=== PATIENT | female | born 1935 | race Asian ===

== ENCOUNTER → 2016-12-01 | Outpatient (CLI) | payer OTHER, MEDICAID ==
[~2016-12-01] MED LIST: AMLO-511 PO; ASPI81 PO; ATOR20TA86 PO; CARV12 PO; D-ME118S13 PO; DOCU250C21 PO; FERR-89 PO; HYDR50 PO; LEVO88TA4 PO; SITA25 PO; VALS160T2 PO
== END | disposition home or self-care (01) ==
LOC: RADPV 15:19
PROVIDERS: ATTEND Internal Medicine
DX: I50.9 Heart failure, unspecified (principal); J98.11 Atelectasis; J90 Pleural effusion, not elsewhere classified; I51.7 Cardiomegaly; I70.0 Atherosclerosis of aorta
CPT/HCPCS: 71020

== ENCOUNTER 2017-01-23 15:20 | Inpatient (IN) | payer OTHER, MEDICAID ==
[~2017-01-23] VITALS: Ht 152.4 cm; Wt 66.9 kg
[2017-01-23 15:37] LABS: GLUCOSE,POINT OF CARE 112 MG/DL (70-110)
[2017-01-23] MEDS ORDERED: VALS160T2 PO (15:38)
[2017-01-23] MEDS ORDERED: DOCU250C21 PO (15:38)
[2017-01-23] MEDS ORDERED: D-ME118S13 PO (15:38)
[2017-01-23] MEDS ORDERED: HYDR50 PO (15:38)
[2017-01-23] MEDS ORDERED: FERS325 PO (15:38)
[2017-01-23] MEDS ORDERED: ASPI81 PO (15:38)
[2017-01-23] MEDS ORDERED: ATOR20TA86 PO (15:38)
[2017-01-23] MEDS ORDERED: AMLO-511 PO (15:38)
[2017-01-23] MEDS ORDERED: CARV12 PO (15:38)
[2017-01-23] MEDS ORDERED: LEVO88TA4 PO (15:38)
[2017-01-23] MEDS ORDERED: SITA25 PO (15:38)
[2017-01-23 16:04] LABS: BASOPHILS % (AUTO) 0.1 % (0.0-2.0); EOSINOPHILS % (AUTO) 0.06 % (1.0-6.0); HEMATOCRIT 31.1 % (36-46); HEMOGLOBIN 10.2 g/dL (12.0-16.0); LYMPHOCYTES % (AUTO) 19.4 % (22.0-44.0); MEAN CORPUSCULAR HEMOGLOBIN 29.8 pg (26.0-34.0); MEAN CORPUSCULAR HGB CONC 32.8 G/dL (31.0-37.0); MEAN CORPUSCULAR VOLUME 91 fL (80-100); MONOCYTES # (AUTO) 0.3 K/uL (0.1-1.0); MONOCYTES % (AUTO) 5.7 % (2.0-9.0); NEUTROPHILS % (AUTO) 74.8 % (40.0-70.0); PLATELET COUNT (AUTO) 188 K/uL (150-450); RED BLOOD CELL COUNT(AUTO) 3.42 MIL/uL (4.00-5.20); RED CELL DISTRIBUTION WIDTH 14.7 % (11.5-14.5); WHITE BLOOD COUNT (AUTO) 5.4 K/uL (4.5-11.0)
[2017-01-23 16:08] LABS: CALCIUM, TOTAL 8.1 mg/dL (8.8-10.5); CREATININE 3.7 mg/dL (0.60-1.30); POTASSIUM 5.8 mmol/L (3.5-5.1)
[2017-01-23 16:22] LABS: ALBUMIN 3.3 g/dL (3.4-5.0); BILIRUBIN,TOTAL 0.4 mg/dL (0.1-1.0); THYROID STIMULATING HORMONE 0.59 uIU/mL (0.36-3.74); TOTAL PROTEIN, SERUM 7.1 g/dL (6.4-8.2)
[2017-01-23 16:28] LABS: RBC MORPHOLOGY COMMENT ABNORMAL RBC MORPH
[2017-01-23] MEDS ORDERED: SODIUM BICARBONATE [ADULT] 8.4% 50 MEQ/50 ML SYRINGE IVP ONE (16:30)
[2017-01-23] MEDS ORDERED: CefTRIAXone 1 GM/DEXTROSE 50 ML IV ONE (16:30)
[2017-01-23] MEDS ORDERED: DEXTROSE 50%-WATER 25 GM/50 ML SYRINGE IVP ONE (16:30)
[2017-01-23] MEDS ORDERED: NITROGLYCERIN 2% (1 GM=INCH) PACKET TP ONE (16:30)
[2017-01-23] MEDS ORDERED: NITROGLYCERIN 0.4 MG SUBLINGUAL TABLET #25 SL ONE (16:30)
[2017-01-23] MEDS ORDERED: CALCIUM GLUCONATE 100 MG/ML 10 ML IVP ONE (16:30)
[2017-01-23] MEDS ORDERED: ALBUTEROL SULFATE 2.5 MG/0.5 ML NEB SOLUTION NEB ONE (16:30)
[2017-01-23] MEDS ORDERED: ASPIRIN 81 MG CHEWABLE TABLET PO ONE (16:30)
[2017-01-23] MEDS ORDERED: AZITHROMYCIN 500 MG/NS 250 ML IV ONE (16:30)
[2017-01-23] MEDS ORDERED: SODIUM POLYSTYRENE SULFONATE 15 GM/60 ML SUSPENSION BOTTLE PO ONE (16:30)
[2017-01-23] MEDS ORDERED: INSULIN REGULAR, HUMAN 100 UNITS/ML IVP ONE (16:30)
[2017-01-23] MEDS ORDERED: 0.9% SODIUM CHLORIDE 5 ML NEB SOLUTION NEB ONE (16:44)
[2017-01-23 16:48] LABS: INR 1.1 (0.9-1.1); PROTHROMBIN TIME 11.4 SEC (9.4-11.6)
[2017-01-23] MEDS ORDERED: ACETAMINOPHEN 325 MG TABLET PO PRN (18:15)
[2017-01-23] MEDS ORDERED: 0.9% SODIUM CHLORIDE 10 ML SYRINGE IVP PRN (18:15)
[2017-01-23] MEDS ORDERED: ATORVASTATIN CALCIUM 40 MG TABLET PO ONE (18:15)
[2017-01-23 18:27] LABS: GLUCOSE,POINT OF CARE 180 MG/DL (70-110)
[2017-01-23] MEDS: ALBUTEROL SULFATE 2.5 MG/0.5 ML NEB SOLUTION NEB SCH (21:09)
[2017-01-23] MEDS: IPRATROPIUM BROMIDE 0.5 MG/2.5 ML NEB SOLUTION NEB SCH (21:09)
[2017-01-23 21:30] VITALS: BP 143/69
[2017-01-23] MEDS ORDERED: PROMETHAZINE HCL/D-METHORPHAN HB 5 ML ORAL.SYG PO PRN (23:30)
[2017-01-23] MEDS: HydrALAZINE HCL 50 MG TABLET PO SCH (23:30)
[2017-01-24] VITALS: BP 140/70
[2017-01-24] MEDS: HEPARIN SODIUM,PORCINE 5,000 UNITS/ML VIAL SQ SCH ×4 (00:18→23:30)
[2017-01-24] MEDS: ALBUTEROL SULFATE 2.5 MG/0.5 ML NEB SOLUTION NEB SCH (02:14)
[2017-01-24] MEDS: IPRATROPIUM BROMIDE 0.5 MG/2.5 ML NEB SOLUTION NEB SCH (02:14)
[2017-01-24 04:02] VITALS: BP 133/70
[2017-01-24] MEDS: LEVOTHYROXINE SODIUM 88 MCG TABLET PO SCH (06:30)
[2017-01-24 06:43] LABS: ALBUMIN 2.9 g/dL (3.4-5.0); BILIRUBIN,TOTAL 0.2 mg/dL (0.1-1.0); CALCIUM, TOTAL 8.1 mg/dL (8.8-10.5); CREATININE 4.15 mg/dL (0.60-1.30); MAGNESIUM 3.5 mg/dL (1.80-2.40); POTASSIUM 5.9 mmol/L (3.5-5.1); TOTAL PROTEIN, SERUM 6.4 g/dL (6.4-8.2)
[2017-01-24 06:45] LABS: EOSINOPHILS % (AUTO) 0.11 % (1.0-6.0); HEMATOCRIT 30.7 % (36-46); HEMOGLOBIN 9.7 g/dL (12.0-16.0); LYMPHOCYTES # (AUTO) 0.4 K/uL (1.0-4.8); LYMPHOCYTES % (AUTO) 9.6 % (22.0-44.0); MEAN CORPUSCULAR HEMOGLOBIN 29.8 pg (26.0-34.0); MEAN CORPUSCULAR HGB CONC 31.5 G/dL (31.0-37.0); MEAN CORPUSCULAR VOLUME 95 fL (80-100); MONOCYTES # (AUTO) 0.2 K/uL (0.1-1.0); MONOCYTES % (AUTO) 5.5 % (2.0-9.0); NEUTROPHILS # (AUTO) 3.6 K/uL (1.8-7.7); NEUTROPHILS % (AUTO) 84.9 % (40.0-70.0); PLATELET COUNT (AUTO) 177 K/uL (150-450); RED BLOOD CELL COUNT(AUTO) 3.24 MIL/uL (4.00-5.20); RED CELL DISTRIBUTION WIDTH 15.4 % (11.5-14.5)
[2017-01-24] MEDS: FERROUS SULFATE 325 MG EC TABLET PO SCH ×2 (08:00→17:30)
[2017-01-24 08:09] VITALS: BP 143/60
[2017-01-24] MEDS: DOCUSATE SODIUM 250 MG CAPSULE PO SCH ×2 (09:00→20:48)
[2017-01-24] MEDS: CARVEDILOL 12.5 MG TABLET PO SCH ×2 (09:00→20:48)
[2017-01-24] MEDS ORDERED: VALSARTAN 160 MG TABLET PO SCH (09:00)
[2017-01-24] MEDS ORDERED: AmLODIPine BESYLATE 5 MG TABLET PO SCH (09:00)
[2017-01-24] MEDS ORDERED: SODIUM POLYSTYRENE SULFONATE 15 GM/60 ML SUSPENSION BOTTLE PO ONE (09:45)
[2017-01-24] MEDS ORDERED: SODIUM CHLORIDE 0.45% 1,000 ML IV SCH (09:45)
[2017-01-24] MEDS: AZITHROMYCIN 250 MG TABLET PO SCH (10:56)
[2017-01-24] MEDS: ASPIRIN 81 MG CHEWABLE TABLET PO SCH (10:57)
[2017-01-24] MEDS: ATORVASTATIN CALCIUM 20 MG TABLET PO SCH (10:57)
[2017-01-24] MEDS: SitaGLIPtin PHOSPHATE 25 MG TABLET PO SCH (10:57)
[2017-01-24] MEDS: HydrALAZINE HCL 50 MG TABLET PO SCH ×2 (10:57→20:48)
[2017-01-24 12:29] VITALS: BP 132/80
[2017-01-24 14:32] LABS: ABG A-A DIFF O2 12.9 mmHg (10-20.0); ABG BASE EXCESS 0.4 mmol/L (-2.0-3.0); ABG HCO3 23.2 mmol/L (22.0-26.0); ABG OXYHEMOGLOBIN 91.6 % (94.0-100.0); TEMPERATURE, FAHRENHEIT, BG 97.5 FAHREN (96.0-98.6)
[2017-01-24 14:35] LABS: ABG PCO2 102 mmHg (35-45); ABG PH 7.087 (7.35-7.450)
[2017-01-24 14:36] LABS: ALLEN TEST, BLOOD GAS Positive
[2017-01-24 14:54] LABS: APPEARANCE,URINE CLOUDY (CLEAR); GLUCOSE, URINE (UA) NEGATIVE (NEGATIVE); KETONES,URINE NEGATIVE (NEGATIVE); LEUKOCYTE ESTERASE ,URINE NEGATIVE (NEGATIVE); OCCULT BLOOD,URINE LARGE (NEGATIVE); PROTEIN,URINE SEE CONFIRM (NEGATIVE)
[2017-01-24 14:55] LABS: ADD UA MICROSCOPIC YES
[2017-01-24 14:57] LABS: SULFOSALICYLIC ACID,URINE 3+ (Negative)
[2017-01-24 14:59] LABS: RBC,URINE 26-50 /HPF (0-2)
[2017-01-24 15:00] LABS: AMORPHOUS SEDIMENT,UR Moderate /LPF (None Seen); SQUAMOUS EPITHELIAL CELL,UR Few /LPF (None Seen)
[2017-01-24 16:00] VITALS: BP 120/22
[2017-01-24] MEDS ORDERED: NITROGLYCERIN 50 MG/D5% WATER 250 ML IV PRN (17:05)
[2017-01-24] MEDS ORDERED: ETOMIDATE 2 MG/ML 10 ML VIAL IVP ONE (17:37)
[2017-01-24] MEDS ORDERED: VECURONIUM BROMIDE 10 MG/VIAL IVP ONE (17:37)
[2017-01-24] MEDS: CefTRIAXone 1 GM/DEXTROSE 50 ML IV SCH (17:53)
[2017-01-24] MEDS ORDERED: LevETIRAcetam 500 MG in DEXTROSE 5%-WATER 100 ML IV ONE (19:00)
[2017-01-24 19:33] LABS: ABG A-A DIFF O2 157.3 mmHg (10-20.0); ABG BASE EXCESS 0.3 mmol/L (-2.0-3.0); ABG HCO3 25.3 mmol/L (22.0-26.0); ABG OXYHEMOGLOBIN 97.9 % (94.0-100.0); ABG PCO2 28 mmHg (35-45); ABG PH 7.535 (7.35-7.450); TEMPERATURE, FAHRENHEIT, BG 98.6 FAHREN (96.0-98.6)
[2017-01-24 19:34] LABS: ALLEN TEST, BLOOD GAS POSITIVE
[2017-01-24] MEDS ORDERED: LORazepam 2 MG/ML VIAL IVP ONE (19:45)
[2017-01-24] MEDS ORDERED: NICARDipine 20 MG/DEXT,ISO-OSM 200 ML IV PRN (19:45)
[2017-01-24] MEDS ORDERED: PROPOFOL 1000 MG/ISO-OSM 100 ML IV PRN (19:46)
[2017-01-24] MEDS: SODIUM CHLORIDE 0.9% 1,000 ML IV SCH (20:48)
[2017-01-24 21:47] LABS: CREATINE KINASE, TOTAL 63 U/L (26-192)
[2017-01-24] MEDS ORDERED: RAPID SEQUENCE KIT 1 EA KIT ONE (23:59)
[2017-01-25] VITALS: BP 146/74
[2017-01-25 04:00] VITALS: BP 130/66
[2017-01-25 05:58] LABS: BASOPHILS # (AUTO) 0.01 K/uL (0.00-0.20); BASOPHILS % (AUTO) 0.1 % (0.0-2.0); EOSINOPHILS # (AUTO) 0.01 K/uL (0.00-0.70); EOSINOPHILS % (AUTO) 0.19 % (1.0-6.0); HEMATOCRIT 26.9 % (36-46); HEMOGLOBIN 8.9 g/dL (12.0-16.0); LYMPHOCYTES # (AUTO) 0.8 K/uL (1.0-4.8); LYMPHOCYTES % (AUTO) 13.7 % (22.0-44.0); MEAN CORPUSCULAR HEMOGLOBIN 29.9 pg (26.0-34.0); MEAN CORPUSCULAR HGB CONC 32.9 G/dL (31.0-37.0); MEAN CORPUSCULAR VOLUME 91 fL (80-100); MONOCYTES # (AUTO) 0.4 K/uL (0.1-1.0); MONOCYTES % (AUTO) 6.2 % (2.0-9.0); NEUTROPHILS # (AUTO) 4.8 K/uL (1.8-7.7); NEUTROPHILS % (AUTO) 79.8 % (40.0-70.0); PLATELET COUNT (AUTO) 148 K/uL (150-450); RED BLOOD CELL COUNT(AUTO) 2.96 MIL/uL (4.00-5.20); RED CELL DISTRIBUTION WIDTH 14.8 % (11.5-14.5)
[2017-01-25 06:40] LABS: ALANINE AMINOTRANSFERASE 53 U/L (12-78); ALBUMIN 2.4 g/dL (3.4-5.0); ANION GAP 13 mmol/L (8-16); ASPARTATE AMINOTRANSFERASE 54 U/L (15-37); BILIRUBIN,TOTAL 0.4 mg/dL (0.1-1.0); CALCIUM, TOTAL 7.3 mg/dL (8.8-10.5); CARBON DIOXIDE 28 mmol/L (22-29); CHLORIDE 105 mmol/L (98-107); CREATINE KINASE, TOTAL 63 U/L (26-192); CREATININE 4.04 mg/dL (0.60-1.30); GLOMERULAR FILTR. RATE CALC 11 mL/min (>60); PHOSPHORUS 4.7 mg/dL (2.5-4.9); SODIUM SERUM 146 mmol/L (136-145); THYROID STIMULATING HORMONE 0.52 uIU/mL (0.36-3.74); TOTAL PROTEIN, SERUM 5.4 g/dL (6.4-8.2); UREA NITROGEN, BLOOD 85 mg/dL (7-18)
[2017-01-25 06:49] LABS: WHITE BLOOD COUNT (AUTO) 6.8 K/uL (4.5-11.0)
[2017-01-25] MEDS: LEVOTHYROXINE SODIUM 88 MCG TABLET PO SCH (06:51)
[2017-01-25 06:56] LABS: POTASSIUM 2.8 mmol/L (3.5-5.1)
[2017-01-25 06:59] LABS: GLUCOSE,POINT OF CARE 142 MG/DL (70-110)
[2017-01-25 07:46] LABS: B-TYPE NATRIURETIC PEPTIDE 495 pg/mL (0-100)
[2017-01-25 08:00] VITALS: BP 134/63
[2017-01-25] MEDS: ATORVASTATIN CALCIUM 20 MG TABLET PO SCH (08:12)
[2017-01-25] MEDS: AZITHROMYCIN 250 MG TABLET PO SCH (08:12)
[2017-01-25] MEDS: SitaGLIPtin PHOSPHATE 25 MG TABLET PO SCH (08:12)
[2017-01-25] MEDS: AmLODIPine BESYLATE 10 MG TABLET PO SCH (08:12)
[2017-01-25] MEDS: DOCUSATE SODIUM 250 MG CAPSULE PO SCH ×2 (08:13→20:17)
[2017-01-25] MEDS: FERROUS SULFATE 325 MG EC TABLET PO SCH ×2 (08:13→16:41)
[2017-01-25] MEDS: HEPARIN SODIUM,PORCINE 5,000 UNITS/ML VIAL SQ SCH ×3 (08:13→23:33)
[2017-01-25] MEDS: ASPIRIN 81 MG CHEWABLE TABLET PO SCH (08:13)
[2017-01-25] MEDS: HydrALAZINE HCL 50 MG TABLET PO SCH ×2 (08:13→20:17)
[2017-01-25] MEDS: CARVEDILOL 12.5 MG TABLET PO SCH ×2 (08:13→20:17)
[2017-01-25 08:46] LABS: RBC MORPHOLOGY COMMENT ABNORMAL RBC MORPH
[2017-01-25 09:44] LABS: CREATININE 3.84 mg/dL (0.60-1.30); MAGNESIUM 2.7 mg/dL (1.80-2.40)
[2017-01-25 09:49] LABS: POTASSIUM 2.5 mmol/L (3.5-5.1)
[2017-01-25] MEDS: SODIUM CHLORIDE 0.9% 1,000 ML IV SCH (10:02)
[2017-01-25] MEDS: POTASSIUM CHL 10 MEQ/WATER 50 ML IV SCH ×2 (10:02→11:00)
[2017-01-25 10:08] LABS: ABG A-A DIFF O2 109.1 mmHg (10-20.0); ABG BASE EXCESS 2.1 mmol/L (-2.0-3.0); ABG HCO3 26.7 mmol/L (22.0-26.0); ABG OXYHEMOGLOBIN 98.4 % (94.0-100.0); ABG PCO2 30 mmHg (35-45); ABG PH 7.537 (7.35-7.450)
[2017-01-25 12:00] VITALS: BP 104/50
[2017-01-25 12:02] LABS: ALLEN TEST, BLOOD GAS Positive
[2017-01-25 13:41] LABS: CREATINE KINASE, TOTAL 69 U/L (26-192)
[2017-01-25] MEDS ORDERED: DEXTROSE 50%-WATER 25 GM/50 ML SYRINGE IVP PRN (14:30)
[2017-01-25 16:00] VITALS: BP 121/48
[2017-01-25] MEDS: CefTRIAXone 1 GM/DEXTROSE 50 ML IV SCH (16:41)
[2017-01-25 16:53] LABS: ABG A-A DIFF O2 125.1 mmHg (10-20.0); ABG BASE EXCESS -0.2 mmol/L (-2.0-3.0); ABG HCO3 24.4 mmol/L (22.0-26.0); ABG OXYHEMOGLOBIN 97.6 % (94.0-100.0); ABG PCO2 39 mmHg (35-45); ABG PH 7.411 (7.35-7.450); TEMPERATURE, FAHRENHEIT, BG 98.6 FAHREN (96.0-98.6)
[2017-01-25 17:03] LABS: ALLEN TEST, BLOOD GAS Positive
[2017-01-25 20:00] VITALS: BP 150/68
[2017-01-25] MEDS: INSULIN REGULAR, HUMAN 100 UNITS/ML SQ PRN (23:41)
[2017-01-26] VITALS: BP 108/54
[2017-01-26] MEDS: SODIUM CHLORIDE 0.9% 1,000 ML IV SCH ×2 (00:37→15:24)
[2017-01-26 04:00] VITALS: BP 118/56
[2017-01-26 04:42] LABS: GLUCOSE,POINT OF CARE 118 MG/DL (70-110)
[2017-01-26 04:43] LABS: GLUCOSE,POINT OF CARE 124 MG/DL (70-110)
[2017-01-26 04:43] LABS: GLUCOSE,POINT OF CARE 140 MG/DL (70-110)
[2017-01-26] MEDS: INSULIN REGULAR, HUMAN 100 UNITS/ML SQ PRN ×2 (05:23→17:57)
[2017-01-26 05:32] LABS: BASOPHILS % (AUTO) 0.1 % (0.0-2.0); EOSINOPHILS % (AUTO) 1.3 % (1.0-6.0); HEMATOCRIT 25.8 % (36-46); HEMOGLOBIN 8.1 g/dL (12.0-16.0); LYMPHOCYTES # (AUTO) 0.5 K/uL (1.0-4.8); MEAN CORPUSCULAR HEMOGLOBIN 28.8 pg (26.0-34.0); MEAN CORPUSCULAR HGB CONC 31.6 G/dL (31.0-37.0); MEAN CORPUSCULAR VOLUME 91 fL (80-100); MONOCYTES # (AUTO) 0.4 K/uL (0.1-1.0); MONOCYTES % (AUTO) 7.3 % (2.0-9.0); NEUTROPHILS # (AUTO) 4.4 K/uL (1.8-7.7); NEUTROPHILS % (AUTO) 81.3 % (40.0-70.0); PLATELET COUNT (AUTO) 136 K/uL (150-450); RED BLOOD CELL COUNT(AUTO) 2.83 MIL/uL (4.00-5.20); RED CELL DISTRIBUTION WIDTH 14.5 % (11.5-14.5)
[2017-01-26 05:49] LABS: CREATININE 3.45 mg/dL (0.60-1.30); MAGNESIUM 2.7 mg/dL (1.80-2.40); PHOSPHORUS 2.6 mg/dL (2.5-4.9)
[2017-01-26 05:53] LABS: WHITE BLOOD COUNT (AUTO) 5.9 K/uL (4.5-11.0)
[2017-01-26] MEDS: LEVOTHYROXINE SODIUM 88 MCG TABLET PO SCH (06:11)
[2017-01-26 06:14] LABS: POTASSIUM 2.5 mmol/L (3.5-5.1)
[2017-01-26] MEDS ORDERED: POTASSIUM CHLORIDE 10% 40 MEQ/30 ML LIQUID UDCUP NG ONE (07:15)
[2017-01-26 07:21] LABS: RBC MORPHOLOGY COMMENT ABNORMAL RBC MORPH
[2017-01-26] MEDS: HydrALAZINE HCL 50 MG TABLET PO SCH ×2 (07:49→20:44)
[2017-01-26] MEDS: HEPARIN SODIUM,PORCINE 5,000 UNITS/ML VIAL SQ SCH ×2 (07:49→15:28)
[2017-01-26] MEDS: POTASSIUM CHL 10 MEQ/WATER 50 ML IV SCH ×2 (07:49→09:31)
[2017-01-26] MEDS: CARVEDILOL 12.5 MG TABLET PO SCH ×2 (07:50→21:00)
[2017-01-26] MEDS: DOCUSATE SODIUM 250 MG CAPSULE PO SCH ×2 (07:50→20:44)
[2017-01-26] MEDS: AmLODIPine BESYLATE 10 MG TABLET PO SCH (07:50)
[2017-01-26] MEDS: ATORVASTATIN CALCIUM 20 MG TABLET PO SCH (07:50)
[2017-01-26] MEDS: ASPIRIN 81 MG CHEWABLE TABLET PO SCH (07:50)
[2017-01-26 08:00] VITALS: BP 130/67
[2017-01-26] MEDS: SitaGLIPtin PHOSPHATE 25 MG TABLET PO SCH (08:05)
[2017-01-26] MEDS: FERROUS SULFATE 325 MG EC TABLET PO SCH ×2 (08:05→15:28)
[2017-01-26] MEDS: AZITHROMYCIN 250 MG TABLET PO SCH (08:05)
[2017-01-26 09:58] LABS: ABG A-A DIFF O2 102.7 mmHg (10-20.0); ABG BASE EXCESS 0.8 mmol/L (-2.0-3.0); ABG HCO3 25.8 mmol/L (22.0-26.0); ABG OXYHEMOGLOBIN 98.6 % (94.0-100.0); ABG PCO2 26 mmHg (35-45); ABG PH 7.563 (7.35-7.450)
[2017-01-26 10:33] LABS: ALLEN TEST, BLOOD GAS Positive
[2017-01-26 12:00] VITALS: BP 107/52
[2017-01-26 13:36] LABS: GLUCOSE,POINT OF CARE 120 MG/DL (70-110)
[2017-01-26] MEDS ORDERED: LevETIRAcetam 1,000 MG in DEXTROSE 5%-WATER 100 ML IV ONE (13:45)
[2017-01-26 14:09] LABS: CALCIUM, TOTAL 6.9 mg/dL (8.8-10.5); CREATININE 3.16 mg/dL (0.60-1.30); MAGNESIUM 2.5 mg/dL (1.80-2.40); POTASSIUM 3.7 mmol/L (3.5-5.1)
[2017-01-26] MEDS: CefTRIAXone 1 GM/DEXTROSE 50 ML IV SCH (15:29)
[2017-01-26 16:00] VITALS: BP 121/65
[2017-01-26 20:00] VITALS: BP 115/55
[2017-01-27] VITALS: BP 120/59
[2017-01-27 01:16] LABS: GLUCOSE,POINT OF CARE 146 MG/DL (70-110)
[2017-01-27 01:16] LABS: GLUCOSE,POINT OF CARE 98 MG/DL (70-110)
[2017-01-27] MEDS: HEPARIN SODIUM,PORCINE 5,000 UNITS/ML VIAL SQ SCH ×4 (01:30→23:46)
[2017-01-27] MEDS: LevETIRAcetam 1,000 MG in DEXTROSE 5%-WATER 100 ML IV SCH ×2 (01:30→14:17)
[2017-01-27 04:00] VITALS: BP 135/71
[2017-01-27 05:12] LABS: GLUCOSE,POINT OF CARE 105 MG/DL (70-110)
[2017-01-27] MEDS: SODIUM CHLORIDE 0.9% 1,000 ML IV SCH ×2 (06:31→21:51)
[2017-01-27] MEDS: LEVOTHYROXINE SODIUM 88 MCG TABLET PO SCH (06:31)
[2017-01-27 06:40] LABS: ANION GAP 7 mmol/L (8-16); CALCIUM, TOTAL 6.8 mg/dL (8.8-10.5); CARBON DIOXIDE 27 mmol/L (22-29); CHLORIDE 110 mmol/L (98-107); CREATINE KINASE MB 0.6 ng/mL (0-5); CREATINE KINASE, TOTAL 78 U/L (26-192); CREATININE 2.59 mg/dL (0.60-1.30); GLOMERULAR FILTR. RATE CALC 18 mL/min (>60); PHOSPHORUS 1.6 mg/dL (2.5-4.9); POTASSIUM 3.5 mmol/L (3.5-5.1); SODIUM SERUM 144 mmol/L (136-145); UREA NITROGEN, BLOOD 61 mg/dL (7-18)
[2017-01-27 07:20] LABS: EOSINOPHILS % (AUTO) 2.8 % (1.0-6.0); HEMATOCRIT 26.8 % (36-46); HEMOGLOBIN 8.6 g/dL (12.0-16.0); LYMPHOCYTES # (AUTO) 0.5 K/uL (1.0-4.8); LYMPHOCYTES % (AUTO) 7.8 % (22.0-44.0); MEAN CORPUSCULAR HEMOGLOBIN 29.4 pg (26.0-34.0); MEAN CORPUSCULAR HGB CONC 32.1 G/dL (31.0-37.0); MEAN CORPUSCULAR VOLUME 92 fL (80-100); MONOCYTES # (AUTO) 0.2 K/uL (0.1-1.0); MONOCYTES % (AUTO) 3.3 % (2.0-9.0); NEUTROPHILS # (AUTO) 5.9 K/uL (1.8-7.7); PLATELET COUNT (AUTO) 132 K/uL (150-450); RED BLOOD CELL COUNT(AUTO) 2.92 MIL/uL (4.00-5.20); RED CELL DISTRIBUTION WIDTH 14.7 % (11.5-14.5); WHITE BLOOD COUNT (AUTO) 6.8 K/uL (4.5-11.0)
[2017-01-27 07:24] LABS: B-TYPE NATRIURETIC PEPTIDE 407 pg/mL (0-100)
[2017-01-27 07:25] LABS: NEUTROPHILS % (AUTO) 86.1 % (40.0-70.0)
[2017-01-27 08:00] VITALS: BP 133/66
[2017-01-27 08:10] LABS: ABG A-A DIFF O2 103.8 mmHg (10-20.0); ABG BASE EXCESS 1.4 mmol/L (-2.0-3.0); ABG HCO3 26.6 mmol/L (22.0-26.0); ABG OXYHEMOGLOBIN 98.6 % (94.0-100.0); ABG PCO2 27 mmHg (35-45); ABG PH 7.565 (7.35-7.450)
[2017-01-27 08:15] LABS: ALLEN TEST, BLOOD GAS Positive
[2017-01-27] MEDS: FERROUS SULFATE 325 MG EC TABLET PO SCH ×2 (08:18→17:15)
[2017-01-27] MEDS: AZITHROMYCIN 250 MG TABLET PO SCH (08:19)
[2017-01-27] MEDS: DOCUSATE SODIUM 250 MG CAPSULE PO SCH ×2 (08:19→21:51)
[2017-01-27] MEDS: ASPIRIN 81 MG CHEWABLE TABLET PO SCH (08:19)
[2017-01-27] MEDS: ATORVASTATIN CALCIUM 20 MG TABLET PO SCH (08:19)
[2017-01-27] MEDS: SitaGLIPtin PHOSPHATE 25 MG TABLET PO SCH (08:19)
[2017-01-27] MEDS: AmLODIPine BESYLATE 10 MG TABLET PO SCH (08:19)
[2017-01-27] MEDS: CARVEDILOL 12.5 MG TABLET PO SCH ×2 (09:00→21:00)
[2017-01-27] MEDS: HydrALAZINE HCL 50 MG TABLET PO SCH ×2 (09:23→21:00)
[2017-01-27] MEDS: POTASSIUM PHOS/SODIUM PHOS MIXTURE 1 POWDER PACKET PO SCH ×2 (11:10→21:50)
[2017-01-27 12:00] VITALS: BP 108/56
[2017-01-27 13:27] LABS: GLUCOSE,POINT OF CARE 117 MG/DL (70-110)
[2017-01-27] MEDS: CefTRIAXone 1 GM/DEXTROSE 50 ML IV SCH (15:28)
[2017-01-27 15:36] LABS: ABG A-A DIFF O2 74.4 mmHg (10-20.0); ABG BASE EXCESS -0.5 mmol/L (-2.0-3.0); ABG HCO3 23.9 mmol/L (22.0-26.0); ABG OXYHEMOGLOBIN 97.7 % (94.0-100.0); ABG PCO2 45 mmHg (35-45); ABG PH 7.358 (7.35-7.450); ALLEN TEST, BLOOD GAS Positive
[2017-01-27 16:00] VITALS: BP 120/57
[2017-01-27 19:02] LABS: GLUCOSE,POINT OF CARE 134 MG/DL (70-110)
[2017-01-27 20:00] VITALS: BP 119/59
[2017-01-28] VITALS: BP 117/65
[2017-01-28] MEDS: LevETIRAcetam 1,000 MG in DEXTROSE 5%-WATER 100 ML IV SCH ×2 (02:12→14:45)
[2017-01-28 04:00] VITALS: BP 127/76
[2017-01-28 05:12] LABS: ANION GAP 8 mmol/L (8-16); CALCIUM, TOTAL 6.9 mg/dL (8.8-10.5); CARBON DIOXIDE 25 mmol/L (22-29); CHLORIDE 108 mmol/L (98-107); CREATINE KINASE, TOTAL 69 U/L (26-192); CREATININE 2.22 mg/dL (0.60-1.30); GLOMERULAR FILTR. RATE CALC 21 mL/min (>60); PHOSPHORUS 2.9 mg/dL (2.5-4.9); POTASSIUM 3.7 mmol/L (3.5-5.1); SODIUM SERUM 141 mmol/L (136-145); UREA NITROGEN, BLOOD 54 mg/dL (7-18)
[2017-01-28 05:22] LABS: B-TYPE NATRIURETIC PEPTIDE 465 pg/mL (0-100)
[2017-01-28] MEDS: LEVOTHYROXINE SODIUM 88 MCG TABLET PO SCH (05:57)
[2017-01-28 06:52] LABS: GLUCOSE,POINT OF CARE 131 MG/DL (70-110)
[2017-01-28 06:53] LABS: GLUCOSE,POINT OF CARE 116 MG/DL (70-110)
[2017-01-28 07:24] LABS: BASOPHILS % (AUTO) 0.1 % (0.0-2.0); EOSINOPHILS % (AUTO) 3.4 % (1.0-6.0); HEMATOCRIT 27.9 % (36-46); HEMOGLOBIN 8.9 g/dL (12.0-16.0); LYMPHOCYTES # (AUTO) 0.6 K/uL (1.0-4.8); LYMPHOCYTES % (AUTO) 8.7 % (22.0-44.0); MEAN CORPUSCULAR HEMOGLOBIN 29.5 pg (26.0-34.0); MEAN CORPUSCULAR VOLUME 92 fL (80-100); MONOCYTES # (AUTO) 0.6 K/uL (0.1-1.0); NEUTROPHILS % (AUTO) 77.8 % (40.0-70.0); PLATELET COUNT (AUTO) 127 K/uL (150-450); RED BLOOD CELL COUNT(AUTO) 3.03 MIL/uL (4.00-5.20); RED CELL DISTRIBUTION WIDTH 15.6 % (11.5-14.5); WHITE BLOOD COUNT (AUTO) 6.4 K/uL (4.5-11.0)
[2017-01-28 08:00] VITALS: BP 127/61
[2017-01-28] MEDS: AmLODIPine BESYLATE 10 MG TABLET PO SCH (08:07)
[2017-01-28] MEDS: PANTOPRAZOLE SODIUM 40 MG/VIAL IVP SCH (08:07)
[2017-01-28] MEDS: FERROUS SULFATE 325 MG EC TABLET PO SCH ×2 (08:07→18:12)
[2017-01-28] MEDS: ASPIRIN 81 MG CHEWABLE TABLET PO SCH (08:07)
[2017-01-28] MEDS: SitaGLIPtin PHOSPHATE 25 MG TABLET PO SCH (08:07)
[2017-01-28] MEDS: ATORVASTATIN CALCIUM 20 MG TABLET PO SCH (08:07)
[2017-01-28] MEDS: AZITHROMYCIN 250 MG TABLET PO SCH (08:07)
[2017-01-28] MEDS: DOCUSATE SODIUM 250 MG CAPSULE PO SCH ×2 (08:08→20:13)
[2017-01-28] MEDS: HEPARIN SODIUM,PORCINE 5,000 UNITS/ML VIAL SQ SCH ×3 (08:08→23:11)
[2017-01-28] MEDS: HydrALAZINE HCL 50 MG TABLET PO SCH ×2 (09:00→20:13)
[2017-01-28] MEDS: CARVEDILOL 12.5 MG TABLET PO SCH ×2 (09:00→20:12)
[2017-01-28 10:33] LABS: ABG A-A DIFF O2 79.8 mmHg (10-20.0); ABG BASE EXCESS -2.1 mmol/L (-2.0-3.0); ABG HCO3 23.2 mmol/L (22.0-26.0); ABG OXYHEMOGLOBIN 98.6 % (94.0-100.0); ABG PCO2 30 mmHg (35-45); ABG PH 7.479 (7.35-7.450); TEMPERATURE, FAHRENHEIT, BG 98.6 FAHREN (96.0-98.6)
[2017-01-28 10:34] LABS: ALLEN TEST, BLOOD GAS Positive
[2017-01-28] MEDS: SODIUM CHLORIDE 0.9% 1,000 ML IV SCH (10:35)
[2017-01-28 12:00] VITALS: BP 110/58
[2017-01-28 15:52] LABS: GLUCOSE,POINT OF CARE 103 MG/DL (70-110)
[2017-01-28 16:00] VITALS: BP 132/59
[2017-01-28] MEDS: CefTRIAXone 1 GM/DEXTROSE 50 ML IV SCH (16:41)
[2017-01-28 20:00] VITALS: BP 134/78
[2017-01-28] MEDS: INSULIN REGULAR, HUMAN 100 UNITS/ML SQ PRN (23:15)
[2017-01-29] VITALS: BP 105/50
[2017-01-29] MEDS: SODIUM CHLORIDE 0.9% 1,000 ML IV SCH ×2 (00:31→11:10)
[2017-01-29] MEDS: LevETIRAcetam 1,000 MG in DEXTROSE 5%-WATER 100 ML IV SCH ×2 (01:29→14:56)
[2017-01-29 04:00] VITALS: BP 146/59
[2017-01-29] MEDS: INSULIN REGULAR, HUMAN 100 UNITS/ML SQ PRN (05:10)
[2017-01-29 05:44] LABS: CREATININE 1.92 mg/dL (0.60-1.30); PHOSPHORUS 3.4 mg/dL (2.5-4.9)
[2017-01-29 05:53] LABS: BASOPHILS % (AUTO) 0.3 % (0.0-2.0); HEMATOCRIT 24.8 % (36-46); HEMOGLOBIN 7.7 g/dL (12.0-16.0); LYMPHOCYTES # (AUTO) 0.6 K/uL (1.0-4.8); LYMPHOCYTES % (AUTO) 9.4 % (22.0-44.0); MEAN CORPUSCULAR HGB CONC 31.2 G/dL (31.0-37.0); MEAN CORPUSCULAR VOLUME 93 fL (80-100); MONOCYTES # (AUTO) 0.6 K/uL (0.1-1.0); MONOCYTES % (AUTO) 10.5 % (2.0-9.0); NEUTROPHILS # (AUTO) 4.6 K/uL (1.8-7.7); NEUTROPHILS % (AUTO) 75.8 % (40.0-70.0); PLATELET COUNT (AUTO) 121 K/uL (150-450); RED BLOOD CELL COUNT(AUTO) 2.66 MIL/uL (4.00-5.20); WHITE BLOOD COUNT (AUTO) 6.1 K/uL (4.5-11.0)
[2017-01-29] MEDS: LEVOTHYROXINE SODIUM 88 MCG TABLET PO SCH (05:56)
[2017-01-29 08:00] VITALS: BP 112/61
[2017-01-29 08:21] LABS: ABG A-A DIFF O2 82.4 mmHg (10-20.0); ABG BASE EXCESS -1.4 mmol/L (-2.0-3.0); ABG HCO3 23.7 mmol/L (22.0-26.0); ABG PCO2 30 mmHg (35-45); ABG PH 7.484 (7.35-7.450); ALLEN TEST, BLOOD GAS Positive; TEMPERATURE, FAHRENHEIT, BG 98.6 FAHREN (96.0-98.6)
[2017-01-29] MEDS: AmLODIPine BESYLATE 10 MG TABLET PO SCH (09:00)
[2017-01-29] MEDS: CARVEDILOL 12.5 MG TABLET PO SCH ×2 (09:00→20:12)
[2017-01-29] MEDS: HydrALAZINE HCL 50 MG TABLET PO SCH ×2 (09:00→20:12)
[2017-01-29 10:02] LABS: GLUCOSE,POINT OF CARE 105 MG/DL (70-110)
[2017-01-29 10:02] LABS: GLUCOSE,POINT OF CARE 94 MG/DL (70-110)
[2017-01-29] MEDS: HEPARIN SODIUM,PORCINE 5,000 UNITS/ML VIAL SQ SCH ×2 (11:11→17:16)
[2017-01-29] MEDS: PANTOPRAZOLE SODIUM 40 MG/VIAL IVP SCH (11:11)
[2017-01-29] MEDS: EPOETIN ALFA 10,000 UNITS/ML VIAL SQ SCH (11:11)
[2017-01-29] MEDS: DOCUSATE SODIUM 250 MG CAPSULE PO SCH ×2 (11:12→20:12)
[2017-01-29] MEDS: AZITHROMYCIN 250 MG TABLET PO SCH (11:12)
[2017-01-29] MEDS: ATORVASTATIN CALCIUM 20 MG TABLET PO SCH (11:12)
[2017-01-29] MEDS: FERROUS SULFATE 325 MG EC TABLET PO SCH ×2 (11:12→20:11)
[2017-01-29] MEDS: SitaGLIPtin PHOSPHATE 25 MG TABLET PO SCH (11:12)
[2017-01-29] MEDS: ASPIRIN 81 MG CHEWABLE TABLET PO SCH (11:12)
[2017-01-29 12:00] VITALS: BP 125/64
[2017-01-29 15:41] LABS: GLUCOSE,POINT OF CARE 124 MG/DL (70-110)
[2017-01-29 15:41] LABS: GLUCOSE,POINT OF CARE 100 MG/DL (70-110)
[2017-01-29 16:00] VITALS: BP 144/80
[2017-01-29] MEDS: CefTRIAXone 1 GM/DEXTROSE 50 ML IV SCH (17:17)
[2017-01-29 18:52] LABS: GLUCOSE,POINT OF CARE 115 MG/DL (70-110)
[2017-01-29 20:00] VITALS: BP 130/67
[2017-01-30] VITALS (12 sets, daily range): BP systolic 101–177; BP diastolic 45–71
[2017-01-30] MEDS: HEPARIN SODIUM,PORCINE 5,000 UNITS/ML VIAL SQ SCH ×3 (00:25→16:11)
[2017-01-30] MEDS: LevETIRAcetam 1,000 MG in DEXTROSE 5%-WATER 100 ML IV SCH ×2 (01:18→15:39)
[2017-01-30] MEDS: SODIUM CHLORIDE 0.9% 1,000 ML IV SCH (05:20)
[2017-01-30 06:22] LABS: BASOPHILS % (AUTO) 0.2 % (0.0-2.0); EOSINOPHILS % (AUTO) 3.6 % (1.0-6.0); HEMATOCRIT 23.5 % (36-46); HEMOGLOBIN 7.3 g/dL (12.0-16.0); LYMPHOCYTES # (AUTO) 0.6 K/uL (1.0-4.8); LYMPHOCYTES % (AUTO) 8.9 % (22.0-44.0); MEAN CORPUSCULAR HEMOGLOBIN 28.7 pg (26.0-34.0); MEAN CORPUSCULAR VOLUME 93 fL (80-100); MONOCYTES # (AUTO) 0.6 K/uL (0.1-1.0); MONOCYTES % (AUTO) 8.8 % (2.0-9.0); NEUTROPHILS % (AUTO) 78.5 % (40.0-70.0); PLATELET COUNT (AUTO) 118 K/uL (150-450); RED BLOOD CELL COUNT(AUTO) 2.54 MIL/uL (4.00-5.20); RED CELL DISTRIBUTION WIDTH 14.9 % (11.5-14.5); WHITE BLOOD COUNT (AUTO) 6.3 K/uL (4.5-11.0)
[2017-01-30 06:36] LABS: CALCIUM, TOTAL 7.3 mg/dL (8.8-10.5); CREATININE 1.93 mg/dL (0.60-1.30); MAGNESIUM 2.1 mg/dL (1.80-2.40); PHOSPHORUS 3.7 mg/dL (2.5-4.9); POTASSIUM 4.5 mmol/L (3.5-5.1)
[2017-01-30] MEDS: LEVOTHYROXINE SODIUM 88 MCG TABLET PO SCH (06:41)
[2017-01-30] MEDS: FERROUS SULFATE 325 MG EC TABLET PO SCH ×2 (08:40→18:07)
[2017-01-30] MEDS: PANTOPRAZOLE SODIUM 40 MG/VIAL IVP SCH (08:41)
[2017-01-30] MEDS: AZITHROMYCIN 250 MG TABLET PO SCH (08:42)
[2017-01-30] MEDS: ATORVASTATIN CALCIUM 20 MG TABLET PO SCH (08:42)
[2017-01-30] MEDS: DOCUSATE SODIUM 250 MG CAPSULE PO SCH ×2 (08:42→21:34)
[2017-01-30] MEDS: SitaGLIPtin PHOSPHATE 25 MG TABLET PO SCH (08:42)
[2017-01-30] MEDS: ASPIRIN 81 MG CHEWABLE TABLET PO SCH (08:43)
[2017-01-30] MEDS: AmLODIPine BESYLATE 10 MG TABLET PO SCH (08:44)
[2017-01-30 08:51] LABS: GLUCOSE,POINT OF CARE 104 MG/DL (70-110)
[2017-01-30] MEDS: HydrALAZINE HCL 50 MG TABLET PO SCH ×2 (09:00→21:34)
[2017-01-30] MEDS: CARVEDILOL 12.5 MG TABLET PO SCH ×2 (10:40→21:34)
[2017-01-30 12:05] LABS: ABG A-A DIFF O2 78.5 mmHg (10-20.0); ABG BASE EXCESS -4.8 mmol/L (-2.0-3.0); ABG HCO3 20.7 mmol/L (22.0-26.0); ABG OXYHEMOGLOBIN 93.9 % (94.0-100.0); ABG PCO2 40 mmHg (35-45); ABG PH 7.336 (7.35-7.450); TEMPERATURE, FAHRENHEIT, BG 98.6 FAHREN (96.0-98.6)
[2017-01-30 12:06] LABS: ALLEN TEST, BLOOD GAS Positive
[2017-01-30 12:10] LABS: ALBUMIN 1.6 g/dL (3.4-5.0); BILIRUBIN,TOTAL 0.2 mg/dL (0.1-1.0); CALCIUM, TOTAL 7.3 mg/dL (8.8-10.5); CREATININE 1.95 mg/dL (0.60-1.30); POTASSIUM 4.5 mmol/L (3.5-5.1); TOTAL PROTEIN, SERUM 5.2 g/dL (6.4-8.2)
[2017-01-30] MEDS ORDERED: SODIUM CHLORIDE 0.9% 250 ML IV ONE (15:04)
[2017-01-30] MEDS: CefTRIAXone 1 GM/DEXTROSE 50 ML IV SCH (16:08)
[2017-01-30] MEDS: INSULIN REGULAR, HUMAN 100 UNITS/ML SQ PRN (18:24)
[2017-01-31 00:08] VITALS: BP 123/73
[2017-01-31] MEDS: HEPARIN SODIUM,PORCINE 5,000 UNITS/ML VIAL SQ SCH ×3 (00:30→15:04)
[2017-01-31 00:32] LABS: GLUCOSE,POINT OF CARE 86 MG/DL (70-110)
[2017-01-31 00:32] LABS: GLUCOSE,POINT OF CARE 108 MG/DL (70-110)
[2017-01-31] MEDS: INSULIN REGULAR, HUMAN 100 UNITS/ML SQ PRN ×3 (00:32→13:40)
[2017-01-31] MEDS ORDERED: SODIUM CHLORIDE 0.9% 250 ML IV ONE (02:37)
[2017-01-31] MEDS: LevETIRAcetam 1,000 MG in DEXTROSE 5%-WATER 100 ML IV SCH ×2 (03:00→13:39)
[2017-01-31 04:00] VITALS: BP 173/77
[2017-01-31 05:44] LABS: CALCIUM, TOTAL 8.2 mg/dL (8.8-10.5); CREATININE 1.99 mg/dL (0.60-1.30); POTASSIUM 5.7 mmol/L (3.5-5.1)
[2017-01-31 06:02] LABS: BASOPHILS % (AUTO) 0.1 % (0.0-2.0); EOSINOPHILS % (AUTO) 0.5 % (1.0-6.0); HEMATOCRIT 33.4 % (36-46); HEMOGLOBIN 10.4 g/dL (12.0-16.0); LYMPHOCYTES # (AUTO) 0.8 K/uL (1.0-4.8); LYMPHOCYTES % (AUTO) 7.8 % (22.0-44.0); MEAN CORPUSCULAR HEMOGLOBIN 27.3 pg (26.0-34.0); MEAN CORPUSCULAR HGB CONC 31.2 G/dL (31.0-37.0); MEAN CORPUSCULAR VOLUME 88 fL (80-100); MONOCYTES # (AUTO) 0.7 K/uL (0.1-1.0); MONOCYTES % (AUTO) 7.2 % (2.0-9.0); NEUTROPHILS # (AUTO) 8.1 K/uL (1.8-7.7); NEUTROPHILS % (AUTO) 84.4 % (40.0-70.0); PLATELET COUNT (AUTO) 165 K/uL (150-450); RED CELL DISTRIBUTION WIDTH 22.3 % (11.5-14.5); WHITE BLOOD COUNT (AUTO) 9.6 K/uL (4.5-11.0)
[2017-01-31] MEDS: LEVOTHYROXINE SODIUM 88 MCG TABLET PO SCH (06:20)
[2017-01-31 06:27] LABS: GLUCOSE COMMENT 1 Received Meds; GLUCOSE,POINT OF CARE 142 MG/DL (70-110)
[2017-01-31 06:27] LABS: GLUCOSE COMMENT 1 Received Meds; GLUCOSE,POINT OF CARE 157 MG/DL (70-110)
[2017-01-31 06:27] LABS: GLUCOSE COMMENT 1 Received Meds; GLUCOSE,POINT OF CARE 168 MG/DL (70-110)
[2017-01-31 08:00] VITALS: BP 159/62
[2017-01-31] MEDS: DOCUSATE SODIUM 250 MG CAPSULE PO SCH ×2 (08:03→22:53)
[2017-01-31] MEDS: AmLODIPine BESYLATE 10 MG TABLET PO SCH (08:04)
[2017-01-31] MEDS: ATORVASTATIN CALCIUM 20 MG TABLET PO SCH (08:04)
[2017-01-31] MEDS: ASPIRIN 81 MG CHEWABLE TABLET PO SCH (08:04)
[2017-01-31] MEDS: HydrALAZINE HCL 50 MG TABLET PO SCH ×2 (08:04→21:00)
[2017-01-31] MEDS: FERROUS SULFATE 325 MG EC TABLET PO SCH ×2 (08:04→16:25)
[2017-01-31] MEDS: PANTOPRAZOLE SODIUM 40 MG/VIAL IVP SCH (08:05)
[2017-01-31] MEDS: AZITHROMYCIN 250 MG TABLET PO SCH (08:05)
[2017-01-31] MEDS: SitaGLIPtin PHOSPHATE 25 MG TABLET PO SCH (08:05)
[2017-01-31] MEDS: CARVEDILOL 12.5 MG TABLET PO SCH ×2 (08:05→21:00)
[2017-01-31] MEDS ORDERED: FUROSEMIDE 40 MG/4 ML VIAL IVP ONE (09:00)
[2017-01-31 10:19] LABS: ABG A-A DIFF O2 450.8 mmHg (10-20.0); ABG BASE EXCESS -7.3 mmol/L (-2.0-3.0); ABG HCO3 17.7 mmol/L (22.0-26.0); ABG OXYHEMOGLOBIN 97.1 % (94.0-100.0); TEMPERATURE, FAHRENHEIT, BG 93.5 FAHREN (96.0-98.6)
[2017-01-31 10:20] LABS: ABG PCO2 79 mmHg (35-45); ABG PH 7.072 (7.35-7.450); ALLEN TEST, BLOOD GAS Positive
[2017-01-31 10:21] LABS: IPAP, BG 18 cm H2O
[2017-01-31 10:32] LABS: RBC MORPHOLOGY COMMENT ABNORMAL RBC MORPH
[2017-01-31] MEDS ORDERED: RAPID SEQUENCE KIT 1 EA KIT ONE (10:37)
[2017-01-31] MEDS ORDERED: SUCCINYLCHOLINE CHLORIDE 20 MG/ML 10 ML VIAL ONE (10:38)
[2017-01-31] MEDS ORDERED: INSULIN REGULAR, HUMAN 100 UNITS/ML IVP ONE (10:45)
[2017-01-31] MEDS ORDERED: DEXTROSE 50%-WATER 25 GM/50 ML SYRINGE IVP ONE (10:45)
[2017-01-31] MEDS ORDERED: DOPamine HCL 200 MG/D5%-WATER 250 ML IV PRN (10:45)
[2017-01-31] MEDS ORDERED: DOPamine HCL 400 MG/D5%-WATER 250 ML IV ONE (10:57)
[2017-01-31] MEDS: DOPamine HCL 400 MG/D5%-WATER 250 ML IV PRN (11:11)
[2017-01-31 12:00] VITALS: BP 98/52
[2017-01-31 13:04] LABS: ABG A-A DIFF O2 200.9 mmHg (10-20.0); ABG BASE EXCESS -6.4 mmol/L (-2.0-3.0); ABG OXYHEMOGLOBIN 93.7 % (94.0-100.0); ABG PCO2 52 mmHg (35-45); ABG PH 7.226 (7.35-7.450); TEMPERATURE, FAHRENHEIT, BG 95.6 FAHREN (96.0-98.6)
[2017-01-31 13:06] LABS: ALLEN TEST, BLOOD GAS Positive; IPAP, BG 22 cm H2O
[2017-01-31 13:29] LABS: BILIRUBIN,TOTAL 0.2 mg/dL (0.1-1.0); CREATININE 2.13 mg/dL (0.60-1.30); MAGNESIUM 2.4 mg/dL (1.80-2.40); PHOSPHORUS 6.1 mg/dL (2.5-4.9); POTASSIUM 5.6 mmol/L (3.5-5.1); TOTAL PROTEIN, SERUM 6.4 g/dL (6.4-8.2)
[2017-01-31] MEDS: CefTRIAXone 1 GM/DEXTROSE 50 ML IV SCH (15:04)
[2017-01-31] MEDS ORDERED: ETOMIDATE 2 MG/ML 10 ML VIAL IVP ONE (15:25)
[2017-01-31] MEDS ORDERED: VECURONIUM BROMIDE 10 MG/VIAL IVP ONE (15:25)
[2017-01-31 16:00] VITALS: BP 123/88
[2017-01-31] MEDS: ALBUMIN HUMAN 25%-25GM/100ML 100 ML IV SCH (16:11)
[2017-01-31] MEDS: BUMETANIDE 0.25 MG/ML 10 ML VIAL IVP SCH (16:11)
[2017-01-31 16:37] LABS: ABG BASE EXCESS -5.4 mmol/L (-2.0-3.0); ABG HCO3 20.7 mmol/L (22.0-26.0); ABG OXYHEMOGLOBIN 99.5 % (94.0-100.0); ABG PCO2 32 mmHg (35-45); ABG PH 7.399 (7.35-7.450); TEMPERATURE, FAHRENHEIT, BG 97.9 FAHREN (96.0-98.6)
[2017-01-31 16:40] LABS: ALLEN TEST, BLOOD GAS Positive
[2017-01-31 18:31] LABS: GLUCOSE,POINT OF CARE 107 MG/DL (70-110)
[2017-01-31 20:00] VITALS: BP 123/56
[2017-01-31] MEDS ORDERED: FUROSEMIDE 40 MG/4 ML VIAL IVP SCH (21:00)
[2017-02-01] VITALS: BP 127/56
[2017-02-01] MEDS ORDERED: ALBUMIN HUMAN 25%-25GM/100ML 100 ML IV ONE (00:01)
[2017-02-01] MEDS: HEPARIN SODIUM,PORCINE 5,000 UNITS/ML VIAL SQ SCH ×3 (00:14→15:23)
[2017-02-01] MEDS ORDERED: BUMETANIDE 0.25 MG/ML 10 ML VIAL IVP ONE (01:00)
[2017-02-01] MEDS ORDERED: SODIUM CHLORIDE 0.9% 250 ML IV ONE ×2 (01:27→14:31)
[2017-02-01] MEDS: LevETIRAcetam 1,000 MG in DEXTROSE 5%-WATER 100 ML IV SCH ×2 (02:42→14:32)
[2017-02-01] MEDS: DOPamine HCL 400 MG/D5%-WATER 250 ML IV PRN (02:53)
[2017-02-01] MEDS: ALBUMIN HUMAN 25%-25GM/100ML 100 ML IV SCH ×2 (04:05→16:08)
[2017-02-01 04:12] VITALS: BP 115/53
[2017-02-01] MEDS: BUMETANIDE 0.25 MG/ML 10 ML VIAL IVP SCH ×2 (05:04→17:00)
[2017-02-01 05:54] LABS: CALCIUM, TOTAL 8.1 mg/dL (8.8-10.5); CREATININE 2.18 mg/dL (0.60-1.30); POTASSIUM 5.2 mmol/L (3.5-5.1)
[2017-02-01] MEDS: LEVOTHYROXINE SODIUM 88 MCG TABLET PO SCH (06:23)
[2017-02-01 06:32] LABS: GLUCOSE,POINT OF CARE 93 MG/DL (70-110)
[2017-02-01 06:37] LABS: GLUCOSE,POINT OF CARE 102 MG/DL (70-110)
[2017-02-01 07:43] LABS: BASOPHILS % (AUTO) 0.1 % (0.0-2.0); EOSINOPHILS % (AUTO) 2.6 % (1.0-6.0); HEMOGLOBIN 8.1 g/dL (12.0-16.0); LYMPHOCYTES # (AUTO) 0.3 K/uL (1.0-4.8); MEAN CORPUSCULAR HEMOGLOBIN 27.1 pg (26.0-34.0); MEAN CORPUSCULAR HGB CONC 31.2 G/dL (31.0-37.0); MEAN CORPUSCULAR VOLUME 87 fL (80-100); MONOCYTES # (AUTO) 0.7 K/uL (0.1-1.0); NEUTROPHILS # (AUTO) 7.7 K/uL (1.8-7.7); PLATELET COUNT (AUTO) 155 K/uL (150-450); RED CELL DISTRIBUTION WIDTH 21.8 % (11.5-14.5); WHITE BLOOD COUNT (AUTO) 8.9 K/uL (4.5-11.0)
[2017-02-01 07:48] LABS: NEUTROPHILS % (AUTO) 86.3 % (40.0-70.0)
[2017-02-01 08:00] VITALS: BP 121/55
[2017-02-01] MEDS: FERROUS SULFATE 325 MG EC TABLET PO SCH ×2 (08:00→17:00)
[2017-02-01 08:17] LABS: RBC MORPHOLOGY COMMENT ABNORMAL RBC MORPH
[2017-02-01] MEDS: CARVEDILOL 12.5 MG TABLET PO SCH ×2 (08:26→21:00)
[2017-02-01] MEDS: HydrALAZINE HCL 50 MG TABLET PO SCH (08:26)
[2017-02-01] MEDS: AmLODIPine BESYLATE 10 MG TABLET PO SCH (08:26)
[2017-02-01] MEDS: ASPIRIN 81 MG CHEWABLE TABLET PO SCH (08:27)
[2017-02-01] MEDS: ATORVASTATIN CALCIUM 20 MG TABLET PO SCH (08:27)
[2017-02-01] MEDS: DOCUSATE SODIUM 250 MG CAPSULE PO SCH ×2 (08:27→21:13)
[2017-02-01] MEDS: EPOETIN ALFA 10,000 UNITS/ML VIAL SQ SCH (08:27)
[2017-02-01] MEDS: PANTOPRAZOLE SODIUM 40 MG/VIAL IVP SCH (08:27)
[2017-02-01] MEDS: AZITHROMYCIN 250 MG TABLET PO SCH (08:27)
[2017-02-01] MEDS: SitaGLIPtin PHOSPHATE 25 MG TABLET PO SCH (08:27)
[2017-02-01 12:00] VITALS: BP 105/66
[2017-02-01 12:52] LABS: GLUCOSE,POINT OF CARE 126 MG/DL (70-110)
[2017-02-01] MEDS: CefTRIAXone 1 GM/DEXTROSE 50 ML IV SCH (15:32)
[2017-02-01 16:00] VITALS: BP 118/57
[2017-02-01 20:00] VITALS: BP 129/65
[2017-02-02] VITALS: BP 116/65
[2017-02-02] MEDS: LevETIRAcetam 1,000 MG in DEXTROSE 5%-WATER 100 ML IV SCH ×2 (02:30→14:29)
[2017-02-02 04:00] VITALS: BP 153/106
[2017-02-02] MEDS: ALBUMIN HUMAN 25%-25GM/100ML 100 ML IV SCH ×2 (04:03→16:20)
[2017-02-02 05:40] LABS: BASOPHILS % (AUTO) 0.1 % (0.0-2.0); EOSINOPHILS % (AUTO) 3.6 % (1.0-6.0); HEMATOCRIT 24.4 % (36-46); HEMOGLOBIN 7.7 g/dL (12.0-16.0); LYMPHOCYTES # (AUTO) 0.4 K/uL (1.0-4.8); LYMPHOCYTES % (AUTO) 5.3 % (22.0-44.0); MEAN CORPUSCULAR HEMOGLOBIN 27.3 pg (26.0-34.0); MEAN CORPUSCULAR HGB CONC 31.7 G/dL (31.0-37.0); MEAN CORPUSCULAR VOLUME 86 fL (80-100); MONOCYTES # (AUTO) 0.7 K/uL (0.1-1.0); MONOCYTES % (AUTO) 9.1 % (2.0-9.0); NEUTROPHILS # (AUTO) 6.2 K/uL (1.8-7.7); NEUTROPHILS % (AUTO) 81.9 % (40.0-70.0); PLATELET COUNT (AUTO) 159 K/uL (150-450); RED BLOOD CELL COUNT(AUTO) 2.84 MIL/uL (4.00-5.20); RED CELL DISTRIBUTION WIDTH 20.7 % (11.5-14.5); WHITE BLOOD COUNT (AUTO) 7.6 K/uL (4.5-11.0)
[2017-02-02] MEDS: BUMETANIDE 0.25 MG/ML 10 ML VIAL IVP SCH ×2 (05:53→17:51)
[2017-02-02] MEDS: LEVOTHYROXINE SODIUM 88 MCG TABLET PO SCH (05:53)
[2017-02-02] MEDS: INSULIN REGULAR, HUMAN 100 UNITS/ML SQ PRN (05:54)
[2017-02-02 06:24] LABS: CALCIUM, TOTAL 7.9 mg/dL (8.8-10.5); CREATININE 2.45 mg/dL (0.60-1.30); MAGNESIUM 2.2 mg/dL (1.80-2.40); PHOSPHORUS 4.7 mg/dL (2.5-4.9); POTASSIUM 4.8 mmol/L (3.5-5.1)
[2017-02-02 08:00] VITALS: BP 133/63
[2017-02-02] MEDS: HEPARIN SODIUM,PORCINE 5,000 UNITS/ML VIAL SQ SCH ×4 (08:00→23:36)
[2017-02-02 08:09] LABS: PROTHROMBIN TIME 10.7 SEC (9.4-11.6)
[2017-02-02 08:39] LABS: RBC MORPHOLOGY COMMENT ABNORMAL RBC MORPH
[2017-02-02] MEDS: CARVEDILOL 12.5 MG TABLET PO SCH ×2 (09:00→23:36)
[2017-02-02] MEDS: PANTOPRAZOLE SODIUM 40 MG/VIAL IVP SCH (09:07)
[2017-02-02] MEDS: DOCUSATE SODIUM 250 MG CAPSULE PO SCH ×2 (09:07→21:07)
[2017-02-02] MEDS: ASPIRIN 81 MG CHEWABLE TABLET PO SCH (09:08)
[2017-02-02] MEDS: SitaGLIPtin PHOSPHATE 25 MG TABLET PO SCH (09:08)
[2017-02-02] MEDS: AZITHROMYCIN 250 MG TABLET PO SCH (09:08)
[2017-02-02] MEDS: FERROUS SULFATE 325 MG EC TABLET PO SCH ×2 (09:08→17:52)
[2017-02-02] MEDS: ATORVASTATIN CALCIUM 20 MG TABLET PO SCH (09:08)
[2017-02-02 10:06] LABS: GLUCOSE,POINT OF CARE 128 MG/DL (70-110)
[2017-02-02 10:13] LABS: ABG A-A DIFF O2 116.7 mmHg (10-20.0); ABG BASE EXCESS -1.3 mmol/L (-2.0-3.0); ABG HCO3 23.5 mmol/L (22.0-26.0); ABG OXYHEMOGLOBIN 94.4 % (94.0-100.0); ABG PCO2 39 mmHg (35-45); ABG PH 7.402 (7.35-7.450); ALLEN TEST, BLOOD GAS Positive; TEMPERATURE, FAHRENHEIT, BG 98.8 FAHREN (96.0-98.6)
[2017-02-02 10:14] LABS: INSIPIRATORY PRESSURE, BG 27 cm H2O
[2017-02-02 10:52] LABS: GLUCOSE COMMENT 1 Received Meds; GLUCOSE,POINT OF CARE 146 MG/DL (70-110)
[2017-02-02 10:52] LABS: GLUCOSE,POINT OF CARE 120 MG/DL (70-110)
[2017-02-02 12:00] VITALS: BP 104/51
[2017-02-02] MEDS ORDERED: SODIUM CHLORIDE 0.9% 250 ML IV ONE (13:11)
[2017-02-02 14:18] LABS: APPEARANCE,URINE CLOUDY (CLEAR); GLUCOSE, URINE (UA) NEGATIVE (NEGATIVE); KETONES,URINE NEGATIVE (NEGATIVE); LEUKOCYTE ESTERASE ,URINE LARGE (NEGATIVE); OCCULT BLOOD,URINE MODERATE (NEGATIVE); PROTEIN,URINE NEGATIVE (NEGATIVE)
[2017-02-02 14:40] LABS: SQUAMOUS EPITHELIAL CELL,UR Few /LPF (None Seen); WBC,URINE 26-50 /HPF (0-5)
[2017-02-02] MEDS: CefTRIAXone 1 GM/DEXTROSE 50 ML IV SCH (15:31)
[2017-02-02 16:00] VITALS: BP 127/56
[2017-02-02 20:00] VITALS: BP 153/70
[2017-02-03] VITALS: BP 161/80
[2017-02-03] MEDS: LevETIRAcetam 1,000 MG in DEXTROSE 5%-WATER 100 ML IV SCH ×2 (01:57→13:46)
[2017-02-03 04:00] VITALS: BP 147/69
[2017-02-03] MEDS: BUMETANIDE 0.25 MG/ML 10 ML VIAL IVP SCH (04:52)
[2017-02-03] MEDS: ALBUMIN HUMAN 25%-25GM/100ML 100 ML IV SCH ×2 (04:52→17:23)
[2017-02-03 05:18] LABS: BASOPHILS % (AUTO) 0.2 % (0.0-2.0); EOSINOPHILS % (AUTO) 4.4 % (1.0-6.0); HEMATOCRIT 23.7 % (36-46); HEMOGLOBIN 7.5 g/dL (12.0-16.0); LYMPHOCYTES # (AUTO) 0.5 K/uL (1.0-4.8); LYMPHOCYTES % (AUTO) 7.2 % (22.0-44.0); MEAN CORPUSCULAR HGB CONC 31.7 G/dL (31.0-37.0); MEAN CORPUSCULAR VOLUME 85 fL (80-100); MONOCYTES # (AUTO) 0.6 K/uL (0.1-1.0); MONOCYTES % (AUTO) 8.5 % (2.0-9.0); NEUTROPHILS # (AUTO) 5.2 K/uL (1.8-7.7); NEUTROPHILS % (AUTO) 79.7 % (40.0-70.0); PLATELET COUNT (AUTO) 176 K/uL (150-450); RED BLOOD CELL COUNT(AUTO) 2.78 MIL/uL (4.00-5.20); RED CELL DISTRIBUTION WIDTH 21.2 % (11.5-14.5); WHITE BLOOD COUNT (AUTO) 6.6 K/uL (4.5-11.0)
[2017-02-03 05:22] LABS: GLUCOSE,POINT OF CARE 83 MG/DL (70-110)
[2017-02-03 05:30] LABS: CALCIUM, TOTAL 8.1 mg/dL (8.8-10.5); CREATININE 2.53 mg/dL (0.60-1.30); MAGNESIUM 2.1 mg/dL (1.80-2.40); PHOSPHORUS 4.8 mg/dL (2.5-4.9); POTASSIUM 4.7 mmol/L (3.5-5.1)
[2017-02-03] MEDS: LEVOTHYROXINE SODIUM 88 MCG TABLET PO SCH (06:25)
[2017-02-03 07:45] LABS: RBC MORPHOLOGY COMMENT ABNORMAL RBC MORPH
[2017-02-03 08:00] VITALS: BP 168/74
[2017-02-03 08:11] LABS: GLUCOSE,POINT OF CARE 111 MG/DL (70-110)
[2017-02-03 08:11] LABS: GLUCOSE,POINT OF CARE 99 MG/DL (70-110)
[2017-02-03 08:11] LABS: GLUCOSE,POINT OF CARE 118 MG/DL (70-110)
[2017-02-03 08:44] LABS: ABG A-A DIFF O2 118.1 mmHg (10-20.0); ABG BASE EXCESS 0.7 mmol/L (-2.0-3.0); ABG HCO3 25.1 mmol/L (22.0-26.0); ABG OXYHEMOGLOBIN 95.1 % (94.0-100.0); ABG PCO2 33 mmHg (35-45); ABG PH 7.477 (7.35-7.450); TEMPERATURE, FAHRENHEIT, BG 98.7 FAHREN (96.0-98.6)
[2017-02-03 08:45] LABS: ALLEN TEST, BLOOD GAS Positive
[2017-02-03 08:46] LABS: INSIPIRATORY PRESSURE, BG 27 cm H2O
[2017-02-03] MEDS: FERROUS SULFATE 325 MG EC TABLET PO SCH ×2 (09:15→17:23)
[2017-02-03] MEDS: ATORVASTATIN CALCIUM 20 MG TABLET PO SCH (09:16)
[2017-02-03] MEDS: CARVEDILOL 12.5 MG TABLET PO SCH ×2 (09:16→21:00)
[2017-02-03] MEDS: AZITHROMYCIN 250 MG TABLET PO SCH (09:16)
[2017-02-03] MEDS: SitaGLIPtin PHOSPHATE 25 MG TABLET PO SCH (09:16)
[2017-02-03] MEDS: DOCUSATE SODIUM 250 MG CAPSULE PO SCH ×2 (09:16→20:54)
[2017-02-03] MEDS: ASPIRIN 81 MG CHEWABLE TABLET PO SCH (09:16)
[2017-02-03] MEDS: HEPARIN SODIUM,PORCINE 5,000 UNITS/ML VIAL SQ SCH ×2 (09:17→17:23)
[2017-02-03] MEDS: EPOETIN ALFA 10,000 UNITS/ML VIAL SQ SCH (09:17)
[2017-02-03] MEDS: PANTOPRAZOLE SODIUM 40 MG/VIAL IVP SCH (09:17)
[2017-02-03 11:45] LABS: ABG A-A DIFF O2 113.2 mmHg (10-20.0); ABG BASE EXCESS 0.2 mmol/L (-2.0-3.0); ABG HCO3 24.8 mmol/L (22.0-26.0); ABG PCO2 35 mmHg (35-45); ALLEN TEST, BLOOD GAS Positive; TEMPERATURE, FAHRENHEIT, BG 97.6 FAHREN (96.0-98.6)
[2017-02-03 11:56] LABS: GLUCOSE,POINT OF CARE 124 MG/DL (70-110)
[2017-02-03 12:00] VITALS: BP 112/58
[2017-02-03 14:23] LABS: APPEARANCE,UNSPUN,BODY FLUID HAZY (CLEAR); COLOR,BODY FLUID YELLOW (LT YELLOW)
[2017-02-03 16:00] VITALS: BP 142/62
[2017-02-03] MEDS: CefTRIAXone 1 GM/DEXTROSE 50 ML IV SCH (17:22)
[2017-02-03] MEDS: ACETAMINOPHEN 650 MG/20.3 ML SOLUTION UDCUP NG PRN (18:22)
[2017-02-03 20:00] VITALS: BP 127/65
[2017-02-03] MEDS ORDERED: SODIUM CHLORIDE 0.9% 250 ML IV ONE (23:37)
[2017-02-04] VITALS: BP 112/52
[2017-02-04] MEDS: HEPARIN SODIUM,PORCINE 5,000 UNITS/ML VIAL SQ SCH ×3 (00:13→17:15)
[2017-02-04] MEDS ORDERED: DEXAMETHASONE SOD PHOS 4 MG/ML VIAL IVP ONE (00:44)
[2017-02-04] MEDS ORDERED: FentaNYL CITRATE-PF 100 MCG/2 ML VIAL IVP ONE (00:44)
[2017-02-04] MEDS ORDERED: ROCURONIUM BROMIDE 10 MG/ML 5 ML VIAL IVP ONE (00:44)
[2017-02-04] MEDS ORDERED: SUCCINYLCHOLINE CHLORIDE 20 MG/ML 10 ML VIAL IVP ONE (00:44)
[2017-02-04] MEDS ORDERED: EPHEDrine SULFATE 50 MG/ML VIAL IM ONE (00:44)
[2017-02-04] MEDS ORDERED: PROPOFOL 1% 20 ML VIAL IVP ONE (00:44)
[2017-02-04] MEDS: LevETIRAcetam 1,000 MG in DEXTROSE 5%-WATER 100 ML IV SCH ×2 (02:11→13:21)
[2017-02-04 04:00] VITALS: BP 143/59
[2017-02-04] MEDS: ALBUMIN HUMAN 25%-25GM/100ML 100 ML IV SCH (04:59)
[2017-02-04 05:58] LABS: CALCIUM, TOTAL 8.1 mg/dL (8.8-10.5); CREATININE 2.61 mg/dL (0.60-1.30); MAGNESIUM 2.1 mg/dL (1.80-2.40); PHOSPHORUS 5.5 mg/dL (2.5-4.9); POTASSIUM 4.7 mmol/L (3.5-5.1)
[2017-02-04] MEDS: LEVOTHYROXINE SODIUM 88 MCG TABLET PO SCH (07:08)
[2017-02-04 08:00] VITALS: BP 164/78
[2017-02-04] MEDS: DOCUSATE SODIUM 250 MG CAPSULE PO SCH ×2 (08:23→21:22)
[2017-02-04] MEDS: ATORVASTATIN CALCIUM 20 MG TABLET PO SCH (08:23)
[2017-02-04] MEDS: AZITHROMYCIN 250 MG TABLET PO SCH (08:24)
[2017-02-04] MEDS: ASPIRIN 81 MG CHEWABLE TABLET PO SCH (08:24)
[2017-02-04] MEDS: SitaGLIPtin PHOSPHATE 25 MG TABLET PO SCH (08:24)
[2017-02-04] MEDS: FERROUS SULFATE 325 MG EC TABLET PO SCH ×2 (08:24→17:15)
[2017-02-04] MEDS: PANTOPRAZOLE SODIUM 40 MG/VIAL IVP SCH (08:25)
[2017-02-04] MEDS: CARVEDILOL 12.5 MG TABLET PO SCH (08:26)
[2017-02-04] MEDS ORDERED: BUMETANIDE 0.25 MG/ML 10 ML VIAL IVP SCH (09:00)
[2017-02-04 09:47] LABS: GLUCOSE,POINT OF CARE 120 MG/DL (70-110)
[2017-02-04 12:00] VITALS: BP 140/64
[2017-02-04 12:57] LABS: GLUCOSE,POINT OF CARE 97 MG/DL (70-110)
[2017-02-04] MEDS ORDERED: LIDOCAINE HCL/PF 1% 30 ML VIAL ONE (13:59)
[2017-02-04] MEDS: CefTRIAXone 1 GM/DEXTROSE 50 ML IV SCH (14:52)
[2017-02-04 16:00] VITALS: BP 156/78
[2017-02-04] MEDS: MORPHINE SULFATE 2 MG/ML SYRINGE IVP PRN (17:16)
[2017-02-04 20:00] VITALS: BP 153/65
[2017-02-04] MEDS: CARVEDILOL 6.25 MG TABLET PO SCH (21:00)
[2017-02-04 21:58] LABS: GLUCOSE,POINT OF CARE 94 MG/DL (70-110)
[2017-02-04 21:58] LABS: GLUCOSE,POINT OF CARE 130 MG/DL (70-110)
[2017-02-04 21:58] LABS: GLUCOSE,POINT OF CARE 120 MG/DL (70-110)
[2017-02-04 23:06] LABS: TOTAL PROTEIN,BODY FLUID,REF 2.7 g/dL
[2017-02-05] VITALS: BP 158/71
[2017-02-05] MEDS: HEPARIN SODIUM,PORCINE 5,000 UNITS/ML VIAL SQ SCH ×3 (00:23→16:05)
[2017-02-05] MEDS: INSULIN REGULAR, HUMAN 100 UNITS/ML SQ PRN ×3 (00:35→17:48)
[2017-02-05] MEDS: LevETIRAcetam 1,000 MG in DEXTROSE 5%-WATER 100 ML IV SCH ×2 (01:46→15:41)
[2017-02-05 01:56] LABS: GLUCOSE COMMENT 1 Received Meds; GLUCOSE,POINT OF CARE 157 MG/DL (70-110)
[2017-02-05 04:00] VITALS: BP 154/72
[2017-02-05 05:28] LABS: CALCIUM, TOTAL 8.2 mg/dL (8.8-10.5); CREATININE 2.55 mg/dL (0.60-1.30); POTASSIUM 5.1 mmol/L (3.5-5.1)
[2017-02-05 06:56] LABS: BASOPHILS # (AUTO) 0.01 K/uL (0.00-0.20); BASOPHILS % (AUTO) 0.2 % (0.0-2.0); EOSINOPHILS % (AUTO) 0.01 % (1.0-6.0); HEMATOCRIT 23.7 % (36-46); HEMOGLOBIN 7.6 g/dL (12.0-16.0); LYMPHOCYTES # (AUTO) 0.4 K/uL (1.0-4.8); LYMPHOCYTES % (AUTO) 7.4 % (22.0-44.0); MEAN CORPUSCULAR HEMOGLOBIN 27.4 pg (26.0-34.0); MEAN CORPUSCULAR HGB CONC 32.2 G/dL (31.0-37.0); MEAN CORPUSCULAR VOLUME 85 fL (80-100); MONOCYTES # (AUTO) 0.2 K/uL (0.1-1.0); MONOCYTES % (AUTO) 3.5 % (2.0-9.0); NEUTROPHILS # (AUTO) 4.7 K/uL (1.8-7.7); PLATELET COUNT (AUTO) 198 K/uL (150-450); RED BLOOD CELL COUNT(AUTO) 2.78 MIL/uL (4.00-5.20); RED CELL DISTRIBUTION WIDTH 20.8 % (11.5-14.5); WHITE BLOOD COUNT (AUTO) 5.3 K/uL (4.5-11.0)
[2017-02-05 06:59] LABS: NEUTROPHILS % (AUTO) 88.9 % (40.0-70.0); RBC MORPHOLOGY COMMENT ABNORMAL RBC MORPH
[2017-02-05 07:02] LABS: GLUCOSE,POINT OF CARE 124 MG/DL (70-110)
[2017-02-05] MEDS: LEVOTHYROXINE SODIUM 88 MCG TABLET PO SCH (07:08)
[2017-02-05] MEDS: FERROUS SULFATE 325 MG EC TABLET PO SCH ×2 (07:24→17:40)
[2017-02-05] MEDS: BUMETANIDE 0.25 MG/ML 10 ML VIAL IVP SCH (07:25)
[2017-02-05] MEDS: PANTOPRAZOLE SODIUM 40 MG/VIAL IVP SCH (07:25)
[2017-02-05] MEDS: CARVEDILOL 6.25 MG TABLET PO SCH ×2 (07:26→20:43)
[2017-02-05] MEDS: SitaGLIPtin PHOSPHATE 25 MG TABLET PO SCH (07:26)
[2017-02-05] MEDS: AZITHROMYCIN 250 MG TABLET PO SCH (07:26)
[2017-02-05] MEDS: DOCUSATE SODIUM 250 MG CAPSULE PO SCH ×2 (07:26→20:43)
[2017-02-05] MEDS: ASPIRIN 81 MG CHEWABLE TABLET PO SCH (07:26)
[2017-02-05 08:00] VITALS: BP 164/78
[2017-02-05] MEDS: ATORVASTATIN CALCIUM 20 MG TABLET PO SCH (08:05)
[2017-02-05] MEDS ORDERED: EPOETIN ALFA 10,000 UNITS/ML VIAL SQ SCH (09:00)
[2017-02-05 12:00] VITALS: BP 159/71
[2017-02-05 16:00] VITALS: BP 135/68
[2017-02-05] MEDS: CefTRIAXone 1 GM/DEXTROSE 50 ML IV SCH (16:05)
[2017-02-05 17:37] LABS: GLUCOSE,POINT OF CARE 103 MG/DL (70-110)
[2017-02-05 17:42] LABS: GLUCOSE,POINT OF CARE 124 MG/DL (70-110)
[2017-02-05 20:00] VITALS: BP 129/63
[2017-02-05] MEDS ORDERED: SODIUM CHLORIDE 0.9% 250 ML IV ONE (20:42)
[2017-02-06] VITALS: BP 176/78
[2017-02-06] MEDS: HEPARIN SODIUM,PORCINE 5,000 UNITS/ML VIAL SQ SCH ×3 (00:11→16:11)
[2017-02-06] MEDS: LevETIRAcetam 1,000 MG in DEXTROSE 5%-WATER 100 ML IV SCH ×2 (02:36→14:21)
[2017-02-06 04:00] VITALS: BP 169/77
[2017-02-06 05:53] LABS: B-TYPE NATRIURETIC PEPTIDE 347 pg/mL (0-100)
[2017-02-06 06:35] LABS: ANION GAP 11 mmol/L (8-16); CALCIUM, TOTAL 8.5 mg/dL (8.8-10.5); CARBON DIOXIDE 27 mmol/L (22-29); CHLORIDE 98 mmol/L (98-107); CREATINE KINASE, TOTAL 41 U/L (26-192); CREATININE 2.49 mg/dL (0.60-1.30); GLOMERULAR FILTR. RATE CALC 18 mL/min (>60); PHOSPHORUS 4.9 mg/dL (2.5-4.9); POTASSIUM 4.5 mmol/L (3.5-5.1); SODIUM SERUM 136 mmol/L (136-145); UREA NITROGEN, BLOOD 68 mg/dL (7-18)
[2017-02-06] MEDS: LEVOTHYROXINE SODIUM 88 MCG TABLET PO SCH (06:50)
[2017-02-06 08:00] VITALS: BP 161/83
[2017-02-06] MEDS: BUMETANIDE 0.25 MG/ML 10 ML VIAL IVP SCH (09:09)
[2017-02-06] MEDS: ATORVASTATIN CALCIUM 20 MG TABLET PO SCH (09:09)
[2017-02-06] MEDS: ASPIRIN 81 MG CHEWABLE TABLET PO SCH (09:09)
[2017-02-06] MEDS: FERROUS SULFATE 325 MG EC TABLET PO SCH ×2 (09:09→16:11)
[2017-02-06] MEDS: SitaGLIPtin PHOSPHATE 25 MG TABLET PO SCH (09:09)
[2017-02-06] MEDS: PANTOPRAZOLE SODIUM 40 MG/VIAL IVP SCH (09:09)
[2017-02-06] MEDS: CARVEDILOL 6.25 MG TABLET PO SCH ×2 (09:10→21:19)
[2017-02-06] MEDS: DOCUSATE SODIUM 250 MG CAPSULE PO SCH ×2 (09:10→21:18)
[2017-02-06] MEDS: AZITHROMYCIN 250 MG TABLET PO SCH (09:10)
[2017-02-06 09:37] LABS: GLUCOSE,POINT OF CARE 125 MG/DL (70-110)
[2017-02-06 09:37] LABS: GLUCOSE,POINT OF CARE 90 MG/DL (70-110)
[2017-02-06 12:00] VITALS: BP 115/61
[2017-02-06] MEDS ORDERED: HydrALAZINE HCL 20 MG/ML VIAL IVP PRN (13:45)
[2017-02-06 16:00] VITALS: BP_SYST 100; BP_SYST 110; BP_DIAS 54; BP_DIAS 71
[2017-02-06] MEDS ORDERED: SODIUM CHLORIDE 0.9% 250 ML IV ONE (16:08)
[2017-02-06] MEDS: CefTRIAXone 1 GM/DEXTROSE 50 ML IV SCH (16:11)
[2017-02-06 17:27] LABS: GLUCOSE,POINT OF CARE 93 MG/DL (70-110)
[2017-02-06 17:27] LABS: GLUCOSE,POINT OF CARE 102 MG/DL (70-110)
[2017-02-06 20:00] VITALS: BP 146/75
[2017-02-07] VITALS: BP 113/63
[2017-02-07] MEDS: HEPARIN SODIUM,PORCINE 5,000 UNITS/ML VIAL SQ SCH ×2 (00:16→08:36)
[2017-02-07] MEDS: LevETIRAcetam 1,000 MG in DEXTROSE 5%-WATER 100 ML IV SCH ×2 (01:52→14:22)
[2017-02-07 04:00] VITALS: BP 163/79
[2017-02-07 04:37] LABS: GLUCOSE,POINT OF CARE 100 MG/DL (70-110)
[2017-02-07] MEDS: LEVOTHYROXINE SODIUM 88 MCG TABLET PO SCH (06:18)
[2017-02-07 06:21] LABS: CALCIUM, TOTAL 8.4 mg/dL (8.8-10.5); CREATININE 2.62 mg/dL (0.60-1.30); POTASSIUM 4.2 mmol/L (3.5-5.1)
[2017-02-07 06:47] LABS: GLUCOSE,POINT OF CARE 106 MG/DL (70-110)
[2017-02-07 07:03] LABS: BASOPHILS % (AUTO) 0.2 % (0.0-2.0); EOSINOPHILS % (AUTO) 8.1 % (1.0-6.0); HEMATOCRIT 23.1 % (36-46); HEMOGLOBIN 7.5 g/dL (12.0-16.0); LYMPHOCYTES # (AUTO) 0.8 K/uL (1.0-4.8); LYMPHOCYTES % (AUTO) 17.9 % (22.0-44.0); MEAN CORPUSCULAR HEMOGLOBIN 27.6 pg (26.0-34.0); MEAN CORPUSCULAR HGB CONC 32.3 G/dL (31.0-37.0); MEAN CORPUSCULAR VOLUME 85 fL (80-100); MONOCYTES # (AUTO) 0.5 K/uL (0.1-1.0); MONOCYTES % (AUTO) 10.8 % (2.0-9.0); NEUTROPHILS # (AUTO) 2.8 K/uL (1.8-7.7); PLATELET COUNT (AUTO) 232 K/uL (150-450); RED CELL DISTRIBUTION WIDTH 20.6 % (11.5-14.5); WHITE BLOOD COUNT (AUTO) 4.4 K/uL (4.5-11.0)
[2017-02-07 08:00] VITALS: BP 131/68
[2017-02-07] MEDS: FERROUS SULFATE 325 MG EC TABLET PO SCH ×2 (08:33→16:41)
[2017-02-07] MEDS: SitaGLIPtin PHOSPHATE 25 MG TABLET PO SCH (08:33)
[2017-02-07] MEDS: CARVEDILOL 6.25 MG TABLET PO SCH ×2 (08:34→22:05)
[2017-02-07] MEDS: ATORVASTATIN CALCIUM 20 MG TABLET PO SCH (08:34)
[2017-02-07] MEDS: ASPIRIN 81 MG CHEWABLE TABLET PO SCH (08:34)
[2017-02-07] MEDS: DOCUSATE SODIUM 250 MG CAPSULE PO SCH ×2 (08:34→22:05)
[2017-02-07] MEDS: PANTOPRAZOLE SODIUM 40 MG/VIAL IVP SCH (08:35)
[2017-02-07] MEDS: BUMETANIDE 0.25 MG/ML 10 ML VIAL IVP SCH (08:35)
[2017-02-07] MEDS: AZITHROMYCIN 250 MG TABLET PO SCH (08:37)
[2017-02-07 09:17] LABS: GLUCOSE,POINT OF CARE 108 MG/DL (70-110)
[2017-02-07 12:00] VITALS: BP 95/43
[2017-02-07 14:46] LABS: GLUCOSE,POINT OF CARE 110 MG/DL (70-110)
[2017-02-07] MEDS: CefTRIAXone 1 GM/DEXTROSE 50 ML IV SCH (15:48)
[2017-02-07 16:00] VITALS: BP 120/65
[2017-02-07 19:26] LABS: GLUCOSE,POINT OF CARE 123 MG/DL (70-110)
[2017-02-07 20:00] VITALS: BP 156/81
[2017-02-08] VITALS (7 sets, daily range): BP systolic 94–174; BP diastolic 43–102
[2017-02-08] MEDS ORDERED: PROPOFOL 1% 20 ML VIAL IVP ONE (01:07)
[2017-02-08] MEDS: LevETIRAcetam 1,000 MG in DEXTROSE 5%-WATER 100 ML IV SCH ×2 (02:10→13:52)
[2017-02-08 05:42] LABS: GLUCOSE,POINT OF CARE 123 MG/DL (70-110)
[2017-02-08] MEDS: LEVOTHYROXINE SODIUM 88 MCG TABLET PO SCH (06:00)
[2017-02-08 07:17] LABS: GLUCOSE,POINT OF CARE 84 MG/DL (70-110)
[2017-02-08] MEDS: FERROUS SULFATE 325 MG EC TABLET PO SCH ×2 (08:00→17:56)
[2017-02-08 08:07] LABS: PROTHROMBIN TIME 10.4 SEC (9.4-11.6)
[2017-02-08] MEDS: PANTOPRAZOLE SODIUM 40 MG/VIAL IVP SCH (08:36)
[2017-02-08] MEDS: BUMETANIDE 0.25 MG/ML 10 ML VIAL IVP SCH (08:37)
[2017-02-08] MEDS: SitaGLIPtin PHOSPHATE 25 MG TABLET PO SCH (08:40)
[2017-02-08] MEDS: CARVEDILOL 6.25 MG TABLET PO SCH ×3 (08:40→21:00)
[2017-02-08] MEDS: DOCUSATE SODIUM 250 MG CAPSULE PO SCH ×2 (08:40→20:23)
[2017-02-08] MEDS: AZITHROMYCIN 250 MG TABLET PO SCH (08:41)
[2017-02-08] MEDS: ATORVASTATIN CALCIUM 20 MG TABLET PO SCH (08:41)
[2017-02-08 08:50] LABS: TEMPERATURE, FAHRENHEIT, BG 98.6 FAHREN (96.0-98.6)
[2017-02-08 09:05] LABS: ABG A-A DIFF O2 105.3 mmHg (10-20.0); ABG BASE EXCESS 5.9 mmol/L (-2.0-3.0); ABG HCO3 29.9 mmol/L (22.0-26.0); ABG OXYHEMOGLOBIN 95.4 % (94.0-100.0); ABG PCO2 27 mmHg (35-45)
[2017-02-08 09:10] LABS: ABG PH 7.618 (7.35-7.450); ALLEN TEST, BLOOD GAS Positive
[2017-02-08] MEDS ORDERED: FentaNYL CITRATE-PF 100 MCG/2 ML VIAL ONE (11:19)
[2017-02-08] MEDS ORDERED: MIDAZOLAM HCL 5 MG/ML VIAL ONE (11:19)
[2017-02-08] MEDS ORDERED: SODIUM CHLORIDE 0.9% 1,000 ML IV ONE ×2 (11:20→12:00)
[2017-02-08 11:42] LABS: GLUCOSE,POINT OF CARE 81 MG/DL (70-110)
[2017-02-08 11:58] LABS: ABG A-A DIFF O2 96.3 mmHg (10-20.0); ABG BASE EXCESS 3.9 mmol/L (-2.0-3.0); ABG HCO3 28.2 mmol/L (22.0-26.0); ABG PCO2 28 mmHg (35-45); ABG PH 7.587 (7.35-7.450); TEMPERATURE, FAHRENHEIT, BG 99.4 FAHREN (96.0-98.6)
[2017-02-08] MEDS: CefTRIAXone 1 GM/DEXTROSE 50 ML IV SCH (15:34)
[2017-02-08 16:12] LABS: ABG A-A DIFF O2 95.2 mmHg (10-20.0); ABG BASE EXCESS 3.7 mmol/L (-2.0-3.0); ABG HCO3 27.9 mmol/L (22.0-26.0); ABG OXYHEMOGLOBIN 94.8 % (94.0-100.0); ABG PCO2 29 mmHg (35-45); ABG PH 7.565 (7.35-7.450); TEMPERATURE, FAHRENHEIT, BG 99.8 FAHREN (96.0-98.6)
[2017-02-08] MEDS ORDERED: LORazepam 2 MG/ML VIAL IVP PRN (16:45)
[2017-02-08] MEDS: ACETAMINOPHEN 650 MG/20.3 ML SOLUTION UDCUP NG PRN (20:23)
[2017-02-08] MEDS ORDERED: SODIUM CHLORIDE 0.9% 250 ML IV ONE (20:23)
[2017-02-09] VITALS (8 sets, daily range): BP systolic 85–129; BP diastolic 39–73
[2017-02-09] MEDS ORDERED: SODIUM CHLORIDE 0.9% 250 ML IV ONE (00:45)
[2017-02-09] MEDS: LevETIRAcetam 1,000 MG in DEXTROSE 5%-WATER 100 ML IV SCH ×2 (01:32→14:25)
[2017-02-09 06:06] LABS: ANION GAP 8 mmol/L (8-16); CALCIUM, TOTAL 8.3 mg/dL (8.8-10.5); CARBON DIOXIDE 29 mmol/L (22-29); CHLORIDE 100 mmol/L (98-107); CREATINE KINASE, TOTAL 25 U/L (26-192); CREATININE 2.95 mg/dL (0.60-1.30); GLOMERULAR FILTR. RATE CALC 15 mL/min (>60); PHOSPHORUS 5.1 mg/dL (2.5-4.9); POTASSIUM 4.1 mmol/L (3.5-5.1); SODIUM SERUM 137 mmol/L (136-145); UREA NITROGEN, BLOOD 78 mg/dL (7-18)
[2017-02-09] MEDS: LEVOTHYROXINE SODIUM 88 MCG TABLET PO SCH (06:11)
[2017-02-09 07:12] LABS: B-TYPE NATRIURETIC PEPTIDE 523 pg/mL (0-100)
[2017-02-09 07:23] LABS: GLUCOSE,POINT OF CARE 93 MG/DL (70-110)
[2017-02-09 07:31] LABS: GLUCOSE,POINT OF CARE 107 MG/DL (70-110)
[2017-02-09 07:32] LABS: GLUCOSE,POINT OF CARE 112 MG/DL (70-110)
[2017-02-09] MEDS: FERROUS SULFATE 325 MG EC TABLET PO SCH ×2 (08:52→17:17)
[2017-02-09] MEDS: CARVEDILOL 6.25 MG TABLET PO SCH ×2 (09:00→20:04)
[2017-02-09] MEDS: ATORVASTATIN CALCIUM 20 MG TABLET PO SCH (09:02)
[2017-02-09] MEDS: POVIDONE-IODINE 120 ML SOLUTION TP SCH (09:02)
[2017-02-09] MEDS: PANTOPRAZOLE SODIUM 40 MG/VIAL IVP SCH (09:02)
[2017-02-09] MEDS: HYDROGEN PEROXIDE 473 ML SOLUTION TP SCH (09:02)
[2017-02-09] MEDS: DOCUSATE SODIUM 250 MG CAPSULE PO SCH ×2 (09:02→20:04)
[2017-02-09] MEDS: SitaGLIPtin PHOSPHATE 25 MG TABLET PO SCH (09:04)
[2017-02-09] MEDS: AZITHROMYCIN 250 MG TABLET PO SCH (09:04)
[2017-02-09] MEDS ORDERED: RINGERS SOLUTION,LACTATED 500 ML IV ONE (10:00)
[2017-02-09 11:14] LABS: ABG BASE EXCESS 1.8 mmol/L (-2.0-3.0); ABG HCO3 26.2 mmol/L (22.0-26.0)
[2017-02-09 11:17] LABS: ABG A-A DIFF O2 68.7 mmHg (10-20.0); ABG OXYHEMOGLOBIN 96.1 % (94.0-100.0); ABG PCO2 30 mmHg (35-45)
[2017-02-09] MEDS: CefTRIAXone 1 GM/DEXTROSE 50 ML IV SCH (17:15)
[2017-02-09 19:27] LABS: GLUCOSE,POINT OF CARE 121 MG/DL (70-110)
[2017-02-09] MEDS: MORPHINE SULFATE 2 MG/ML SYRINGE IVP PRN (21:37)
[2017-02-10] VITALS (18 sets, daily range): BP systolic 108–157; BP diastolic 23–81
[2017-02-10] MEDS: MORPHINE SULFATE 2 MG/ML SYRINGE IVP PRN (01:44)
[2017-02-10] MEDS: LevETIRAcetam 1,000 MG in DEXTROSE 5%-WATER 100 ML IV SCH ×2 (02:16→14:41)
[2017-02-10 05:42] LABS: GLUCOSE,POINT OF CARE 120 MG/DL (70-110)
[2017-02-10 05:42] LABS: GLUCOSE,POINT OF CARE 124 MG/DL (70-110)
[2017-02-10] MEDS: LEVOTHYROXINE SODIUM 88 MCG TABLET PO SCH (05:51)
[2017-02-10 06:05] LABS: BASOPHILS % (AUTO) 0.1 % (0.0-2.0); EOSINOPHILS % (AUTO) 5.2 % (1.0-6.0); HEMATOCRIT 21.6 % (36-46); LYMPHOCYTES # (AUTO) 0.4 K/uL (1.0-4.8); LYMPHOCYTES % (AUTO) 4.1 % (22.0-44.0); MEAN CORPUSCULAR HEMOGLOBIN 27.2 pg (26.0-34.0); MEAN CORPUSCULAR HGB CONC 31.2 G/dL (31.0-37.0); MEAN CORPUSCULAR VOLUME 87 fL (80-100); MONOCYTES # (AUTO) 0.3 K/uL (0.1-1.0); MONOCYTES % (AUTO) 3.6 % (2.0-9.0); NEUTROPHILS # (AUTO) 8.2 K/uL (1.8-7.7); PLATELET COUNT (AUTO) 243 K/uL (150-450); RED BLOOD CELL COUNT(AUTO) 2.48 MIL/uL (4.00-5.20); RED CELL DISTRIBUTION WIDTH 20.6 % (11.5-14.5); WHITE BLOOD COUNT (AUTO) 9.4 K/uL (4.5-11.0)
[2017-02-10 06:24] LABS: CALCIUM, TOTAL 8.3 mg/dL (8.8-10.5); CREATININE 2.88 mg/dL (0.60-1.30); PHOSPHORUS 5.1 mg/dL (2.5-4.9); POTASSIUM 3.7 mmol/L (3.5-5.1)
[2017-02-10 07:28] LABS: HEMOGLOBIN 6.7 g/dL (12.0-16.0)
[2017-02-10 08:06] LABS: ABG A-A DIFF O2 63.5 mmHg (10-20.0); ABG BASE EXCESS 1.4 mmol/L (-2.0-3.0); ABG HCO3 25.7 mmol/L (22.0-26.0); ABG OXYHEMOGLOBIN 95.5 % (94.0-100.0); ABG PCO2 42 mmHg (35-45); ABG PH 7.415 (7.35-7.450); TEMPERATURE, FAHRENHEIT, BG 99.1 FAHREN (96.0-98.6)
[2017-02-10 08:10] LABS: HEMOGLOBIN 6.7 g/dL (12.0-16.0)
[2017-02-10] MEDS: PANTOPRAZOLE SODIUM 40 MG/VIAL IVP SCH (08:47)
[2017-02-10] MEDS: ATORVASTATIN CALCIUM 20 MG TABLET PO SCH (08:48)
[2017-02-10] MEDS: CARVEDILOL 6.25 MG TABLET PO SCH ×2 (08:48→22:13)
[2017-02-10] MEDS: SitaGLIPtin PHOSPHATE 25 MG TABLET PO SCH (08:48)
[2017-02-10] MEDS: AZITHROMYCIN 250 MG TABLET PO SCH (08:49)
[2017-02-10] MEDS: DOCUSATE SODIUM 250 MG CAPSULE PO SCH ×2 (08:49→22:14)
[2017-02-10] MEDS: FERROUS SULFATE 325 MG EC TABLET PO SCH ×2 (08:49→16:19)
[2017-02-10] MEDS: POVIDONE-IODINE 120 ML SOLUTION TP SCH (08:51)
[2017-02-10] MEDS: HYDROGEN PEROXIDE 473 ML SOLUTION TP SCH (08:51)
[2017-02-10 09:12] LABS: RBC MORPHOLOGY COMMENT ABNORMAL RBC MORPH
[2017-02-10] MEDS ORDERED: IOHEXOL 240 MG/ML 50 ML VIAL ONE ×2 (09:32→09:36)
[2017-02-10 10:31] LABS: ALLEN TEST, BLOOD GAS Positive
[2017-02-10] MEDS ORDERED: SODIUM CHLORIDE 0.9% 500 ML IV ONE (11:08)
[2017-02-10] MEDS ORDERED: FUROSEMIDE 40 MG/4 ML VIAL IVP ONE (16:15)
[2017-02-10] MEDS: CefTRIAXone 1 GM/DEXTROSE 50 ML IV SCH (16:19)
[2017-02-10 17:22] LABS: HEMATOCRIT 27.6 % (36-46); HEMOGLOBIN 8.9 g/dL (12.0-16.0)
[2017-02-10 17:27] LABS: GLUCOSE,POINT OF CARE 96 MG/DL (70-110)
[2017-02-10 17:27] LABS: GLUCOSE,POINT OF CARE 107 MG/DL (70-110)
[2017-02-11] MEDS ORDERED: SODIUM CHLORIDE 0.9% 250 ML IV ONE (01:52)
[2017-02-11] MEDS: LevETIRAcetam 1,000 MG in DEXTROSE 5%-WATER 100 ML IV SCH ×2 (01:55→15:42)
[2017-02-11 03:47] VITALS: BP 143/73
[2017-02-11] MEDS: LEVOTHYROXINE SODIUM 88 MCG TABLET PO SCH (06:32)
[2017-02-11 07:33] VITALS: BP 151/71
[2017-02-11 07:37] LABS: GLUCOSE COMMENT 1 Received Meds; GLUCOSE,POINT OF CARE 116 MG/DL (70-110)
[2017-02-11 08:15] LABS: ANION GAP 11 mmol/L (8-16); CALCIUM, TOTAL 8.4 mg/dL (8.8-10.5); CARBON DIOXIDE 27 mmol/L (22-29); CHLORIDE 96 mmol/L (98-107); CREATINE KINASE, TOTAL 23 U/L (26-192); CREATININE 2.89 mg/dL (0.60-1.30); GLOMERULAR FILTR. RATE CALC 16 mL/min (>60); POTASSIUM 3.8 mmol/L (3.5-5.1); SODIUM SERUM 134 mmol/L (136-145); UREA NITROGEN, BLOOD 82 mg/dL (7-18)
[2017-02-11 08:40] LABS: B-TYPE NATRIURETIC PEPTIDE 969 pg/mL (0-100)
[2017-02-11 08:48] LABS: GLUCOSE,POINT OF CARE 103 MG/DL (70-110)
[2017-02-11] MEDS: SitaGLIPtin PHOSPHATE 25 MG TABLET PO SCH (09:11)
[2017-02-11] MEDS: FERROUS SULFATE 325 MG EC TABLET PO SCH (09:11)
[2017-02-11] MEDS: AZITHROMYCIN 250 MG TABLET PO SCH (09:11)
[2017-02-11] MEDS: CARVEDILOL 6.25 MG TABLET PO SCH (09:11)
[2017-02-11] MEDS: PANTOPRAZOLE SODIUM 40 MG/VIAL IVP SCH (09:11)
[2017-02-11] MEDS: ATORVASTATIN CALCIUM 20 MG TABLET PO SCH (09:11)
[2017-02-11] MEDS: DOCUSATE SODIUM 250 MG CAPSULE PO SCH (09:11)
[2017-02-11] MEDS: HYDROGEN PEROXIDE 473 ML SOLUTION TP SCH (09:13)
[2017-02-11] MEDS: POVIDONE-IODINE 120 ML SOLUTION TP SCH (09:13)
[2017-02-11] MEDS ORDERED: BUMETANIDE 0.25 MG/ML 4 ML VIAL IVP ONE (10:00)
[2017-02-11 11:02] VITALS: BP 132/45
[2017-02-11 14:52] LABS: GLUCOSE,POINT OF CARE 96 MG/DL (70-110)
[2017-02-11 14:52] LABS: GLUCOSE,POINT OF CARE 91 MG/DL (70-110)
[2017-02-11 15:10] VITALS: BP 150/68
[2017-02-11] MEDS: ACETAMINOPHEN 650 MG/20.3 ML SOLUTION UDCUP NG PRN (15:45)
[2017-02-11] MEDS: CefTRIAXone 1 GM/DEXTROSE 50 ML IV SCH (16:49)
[2017-02-11 17:44] LABS: ABG A-A DIFF O2 59.7 mmHg (10-20.0); ABG HCO3 25.3 mmol/L (22.0-26.0); ABG OXYHEMOGLOBIN 96.1 % (94.0-100.0); ABG PCO2 41 mmHg (35-45); ABG PH 7.417 (7.35-7.450); ALLEN TEST, BLOOD GAS Positive; TEMPERATURE, FAHRENHEIT, BG 98.6 FAHREN (96.0-98.6)
[2017-02-11 20:02] LABS: GLUCOSE,POINT OF CARE 129 MG/DL (70-110)
[2017-02-12] MEDS ORDERED: EPOETIN ALFA 10,000 UNITS/ML VIAL SQ SCH (09:00)
== END 2017-02-11 18:05 | DRG 4 ==
LOC: EMS 15:23 → 5S 19:00 → ICU 01-24 15:35 → 5N 02-10 17:55
PROVIDERS: ADMIT Family Medicine; ATTEND Family Medicine
PROC: 5A1955Z Respiratory Ventilation, Greater than 96 Consecutive Hours (ICD-10-PCS; principal; 2017-01-24)
PROC: 0BH17EZ Insertion of Endotracheal Airway into Trachea, Via Natural or Artificial Opening (ICD-10-PCS; 2017-01-24)
PROC: 5A09457 Assistance with Respiratory Ventilation, 24-96 Consecutive Hours, Continuous Positive Airway Pressure (ICD-10-PCS; 2017-01-24)
PROC: 02HV33Z Insertion of Infusion Device into Superior Vena Cava, Percutaneous Approach (ICD-10-PCS; 2017-01-24)
PROC: 30233N1 Transfusion of Nonautologous Red Blood Cells into Peripheral Vein, Percutaneous Approach (ICD-10-PCS; 2017-01-30)
PROC: 0W993ZX Drainage of Right Pleural Cavity, Percutaneous Approach, Diagnostic (ICD-10-PCS; 2017-02-03)
PROC: 0B110F4 Bypass Trachea to Cutaneous with Tracheostomy Device, Open Approach (ICD-10-PCS; 2017-02-04)
PROC: 0DH63UZ Insertion of Feeding Device into Stomach, Percutaneous Approach (ICD-10-PCS; 2017-02-08)
DX: I21.4 Non-ST elevation (NSTEMI) myocardial infarction (principal); J18.9 Pneumonia, unspecified organism; G93.40 Encephalopathy, unspecified; J96.21 Acute and chronic respiratory failure with hypoxia; J96.22 Acute and chronic respiratory failure with hypercapnia; I16.1 Hypertensive emergency; N17.9 Acute kidney failure, unspecified; E46 Unspecified protein-calorie malnutrition; E87.1 Hypo-osmolality and hyponatremia; E87.3 Alkalosis; I13.0 Hypertensive heart and chronic kidney disease with heart failure and stage 1 through stage 4 chronic kidney disease, or unspecified chronic kidney disease; J44.0 Chronic obstructive pulmonary disease with (acute) lower respiratory infection; N18.4 Chronic kidney disease, stage 4 (severe); R17 Unspecified jaundice; J90 Pleural effusion, not elsewhere classified; Z99.11 Dependence on respirator [ventilator] status; E87.5 Hyperkalemia; E11.22 Type 2 diabetes mellitus with diabetic chronic kidney disease; E03.9 Hypothyroidism, unspecified; D63.1 Anemia in chronic kidney disease; B37.9 Candidiasis, unspecified; R13.10 Dysphagia, unspecified; E78.5 Hyperlipidemia, unspecified; E83.39 Other disorders of phosphorus metabolism; N28.1 Cyst of kidney, acquired; R00.1 Bradycardia, unspecified; E83.51 Hypocalcemia; E87.6 Hypokalemia; G40.909 Epilepsy, unspecified, not intractable, without status epilepticus; I44.0 Atrioventricular block, first degree; I50.9 Heart failure, unspecified; K59.00 Constipation, unspecified; Z86.73 Personal history of transient ischemic attack (TIA), and cerebral infarction without residual deficits; Z79.4 Long term (current) use of insulin; Z68.28 Body mass index [BMI] 28.0-28.9, adult
CPT/HCPCS: 31500; 32555; 70450; 70551; 71020; 71250; 74176; 76770; 76942; 82271; 82306; 82465; 82570; 82607; 82746; 82803; 82805; 82945; 82962; 83540; 83550; 83615; 83735; 83986; 84100; 84132; 84155; 84156; 84157; 84300; 84443; 84540; 85014; 85018; 86850; 86900; 86901; 86920; 87015; 87040; 87070; 87086; 87101; 87106; 87205; 88108; 89051; 93005; 93306; 93971; 94002; 94003; 94640; 94660; 95816; 96365; 96366; 96368; 96375; 99291; C9113; J0330; J0360; J0456; J0610; J0696; J0712; J0885; J1100; J1265; J1644; J1815; J1940; J2060; J2250; J2270; J2704; J3010; J3480; J3490; J7030; J7040; J7050; J7060; J7120; P9016; P9046; Q9966